=== PATIENT | male | born 1940 | race Caucasian/White ===

== ENCOUNTER 2016-07-16 14:16 | Inpatient (IN) | payer OTHER ==
[~2016-07-16] VITALS: Ht 172.7 cm; Wt 77.1 kg
--- NOTE | 2016-07-16 14:31 | NUR ---
PT PRESENTS TO ER C/O OF FEELING SOB. PT STATES LAST NIGHT HE COULD NOT SLEEP WELL. PT STATES HE FEELS TIRED AND SOB. PT HAS A HX OF COPD
--- NOTE | 2016-07-16 14:34 | ED DYSPNEA/ASTHMA COMPLAINT ---
History of Present Illness General Chief Complaint: Dyspnea (COPD, CHF, Other) Stated Complaint: SOB HX OF COPD Reconcile Medications Albuterol Sulfate (Proair Hfa) 90 MCG HFA.AER.AD 2 PUF INH Q4-6 PRN PRN COPD (Reported) Aspirin (Ecotrin*) 81 MG TABLET.DR 1 TAB PO DAILY CORONARY HEART DISEASE ( Reported) Atorvastatin Calcium 40 MG TABLET 1 TAB PO DAILY CHOLESTEROL (Reported) Fenofibrate (Tricor) 48 MG TABLET 1 TAB PO DAILY TRIGLYCERIDES (Reported) Folic Acid 1 MG TABLET 1 TAB PO DAILY FOLIC ACID (Reported) Lorazepam 2 MG TABLET 1 TAB PO Q12 PRN ANXIETY (Reported) Metoprolol Tartrate 25 MG TABLET 1 TAB PO BID CORONARY HEART DISEASE ( Reported) Tiotropium Tyler (Spiriva) 18 MCG CAP.W.DEV 1 CAP INH DAILY copd (Reported) Triage Note: PT PRESENTS TO ER C/O OF FEELING SOB. PT STATES LAST NIGHT HE COULD NOT SLEEP WELL. PT STATES HE FEELS TIRED AND SOB. PT HAS A HX OF COPD (RODRIGUEZ ESTRADA,[facility]) General Source: patient, family Exam Limitations: no limitations Vital Signs & Intake/Output Vital Signs & Intake/Output Vital Signs Date Time Temp Pulse Resp B/P Pulse O2 O2 Flow FiO2 Ox Delivery Rate 07/17 1254 95 Nasal 1.5L Cannula 07/17 0928 98.9 73 20 120/60 95 Nasal 3.0L Cannula 07/17 0911 99.3 78 24 126/74 07/17 0800 97 Nasal 3.0L Cannula 07/16 2241 92 Nasal 3.0L Cannula 07/16 2235 78 126/74 07/16 2045 99.3 98 24 126/74 94 Nasal 3.0L Cannula 07/16 1936 100.9 07/16 1926 100.9 90 22 141/63 95 Nasal 2.0L Cannula 07/16 1600 94 Nasal 2.0L Cannula 07/16 1557 93 Room Air 07/16 1556 98.0 90 22 117/63 98 Nasal 2.0L Cannula 07/16 1431 98.8 93 20 97/67 98 Room Air ED Intake and Output 07/17 0000 07/16 1200 Intake Total 1750 Output Total 300 Balance 1450 Intake, IV 1300 Intake, Oral 450 Number 0 Bowel Movements Output, Urine 300 Patient 170 lb Weight Allergies Coded Allergies: NO KNOWN ALLERGIES (07/16/16) Triage Nurses Notes Reviewed? yes HPI: This is a 75-year-old male presented to the emergency department with chief complaint of shortness of breath. According to the family, who is at bedside, reported that the patient has been having flulike symptoms since new year. He has been having cough, yellow- green colored sputum production, shortness of breath. Eduardo Zaldivar MD recommended antibiotics for 7days which he completed 3 days ago. He has been having worsening cough, shortness of breath, sputum production for 2 days. He feels his lungs were congested. According to his he was confused at this morning. Hallucinating and seeing some orange-colored spots. Reported being having chills since this morning. Associated with dizziness and lightheadedness. Denied any chest pain, racing of heart, headache, nausea, vomiting, abdominal pain. Off note family reported exposure to sick contacts. (ECTOR ESTRADA,TC) Onset: Gradual Duration: week(s): (1) Timing: recent history Severity: moderate Activities at Onset: none, status post course of antibiotics that finished last week Associated Symptoms: cough, fever, chills, rigors, dyspnea (JENNIFER GARCIA) ED Sepsis Exam Date of Focused Sepsis Exam: 07/16/16 Time of Focused Sepsis Exam: 1550 Sepsis Cardiac Exam: Regular Rate/Rhythm Sepsis Resp Exam: Ronchi Sepsis Cap Refill Exam: <2 Sec Sepsis Peripheral Pulse Exam: Weak Sepsis Peripheral Pulse Location: Radial Sepsis Skin Color Exam: Normal for Ethnicity Skin Temp/Moisture Exam: Warm/Dry (KARO FRIAS MD) Past History Travel History Traveled to [place] past 21 day No Medical History Neurological: NONE EENT: NONE Cardiovascular: angina, CAD, CHF, hypertension, hyperlipidemia, myocardial infarction Respiratory: COPD Gastrointestinal: NONE Hepatic: NONE Renal: NONE Musculoskeletal: chronic back pain Psychiatric: NONE Endocrine: NONE Pneumonia Vaccine: 03/30/08 Surgical History Surgical History: CABG Psychosocial History Who do you live with Spouse Services at Home None What is your primary language Serbian Tobacco Use: Quit >30 days ago (KARO FRIAS MD) Medical History Any Pertinent Medical History? see below for history Family History Hx Contributory? Yes (TC BARNEY MD) Review of Systems Review of Systems Skin: Denies: see HPI. Hematologic/Endocrine: Denies: bruising, bleeding, polyuria, polydipsia. Immunologic/Allergic: Denies: splenectomy. (KARO FRIAS MD) Review of Systems Constitutional: Reports: chills, weakness. Denies: diaphoresis, fever, malaise, unexplained weight loss. EENTM: Reports: hearing changes. Respiratory: Reports: cough, short of breath, sputum production. Denies: hemoptysis, orthopnea, stridor, wheezing. Cardiovascular: Denies: chest pain, edema, orthopena, palpitations, peripheral edema, syncope. GI: Denies: abdominal pain. Genitourinary: Denies: frequency. Musculoskeletal: Reports: joint pain. Neurological/Psychological: Reports: confusion. Denies: anxiety, dementia, emotional problems, headache, numbness, tremors, weakness. (TC BARNEY MD) Physical Exam Physical Exam General Appearance: alert, awake, mild distress Eyes: Bilateral: normal appearance, PERRL, EOMI. Ears, Nose, Throat: normal pharynx, normal ENT inspection, hearing grossly normal Peripheral Pulses: 2+ radial (R), 2+ radial (L) Neurologic/Psych: no motor/sensory deficits, awake, alert, oriented x 3 Skin: warm/dry (KARO FRIAS MD) Physical Exam General Appearance: well developed/nourished Head: atraumatic, normal appearance Neck: normal inspection Respiratory: chest non-tender, rales, respiratory distress Cardiovascular: regular rate/rhythm Gastrointestinal: normal bowel sounds, soft, non-tender Extremities: no edema (TC BARNEY MD) Core Measures ACS in differential dx? No Severe Sepsis Present: Yes BC x2: Yes Lactic Acid x2: Yes IV ABX Broad Spectrum: Yes NS/LR Started: Yes Septic Shock Present: No (JENNIFER GARCIA) Progress Diagnostic Imaging: Viewed by Me: Radiology Read. Discussed w/RAD: Radiology Read. CXR Impression: PATIENT: ESME SÁNCHEZ PRESENT AGE: 75 PATIENT ACCOUNT NO: [id number] : 40 LOCATION: [facility] ORDERING PHYSICIAN: KARO FRIAS MD SERVICE DATE: 07/16/16 EXAM TYPE: RAD - XRY -CHEST XRAY, PA AND LATERAL EXAMINATION: XR CHEST CLINICAL INFORMATION: Cough and shortness of breath. Colored sputum. COMPARISON: CXR from 04/30/[address] from 05/14/2016. TECHNIQUE: PA and lateral views of the chest were obtained. FINDINGS: The lungs are hyperexpanded and hyperlucent from extensive emphysematous disease. Compared to the chest CT of 05/14/2016, there is new patchy and interstitial opacity within the right lower lobe, likely representing a combination of bronchitis and pneumonia. No pneumothorax or pleural effusion. Cardiac silhouette is normal in size, status post coronary artery bypass graft surgery, with intact sternotomy wires in place. The descending thoracic aorta is tortuous. No acute skeletal findings. IMPRESSION: 1. Pulmonary emphysema. 2. Right lower lobe pneumonia. DICTATED BY: FABIAN QUINTEROS MD DATE/TIME DICTATED: 07/16/161533 DYE WINCH OPERATOR:YENNY DATE/TIME TRANSCRIBED:07/16/161533 CONFIDENTIAL, DO NOT COPY WITHOUT APPROPRIATE AUTHORIZATION. <Electronically signed in Other Vendor System> SIGNED BY: FABIAN QUINTEROS MD 07/16/16 8116 Initial ED EKG: ST depression (v3-v6) Prior EKG: changed Rhythm Strip: normal sinus rhythm (RODRIGUEZ ESTRADA,KARO) Differential Diagnosis: bronchitis, CHF, COPD, pneumonia Plan of Care: Orders Procedure Date/time Status CBC WITHOUT DIFFERENTIAL 07/18 0500 Active BASIC ELECTROLYTES PLUS BUN&CR 07/18 0500 Active Regular Diet 07/17 B Active RT: Evaluation 07/17 1252 Active Change service to 07/17 0740 Active MAGNESIUM 07/17 0600 Complete CBC WITHOUT DIFFERENTIAL 07/17 0600 Complete BASIC ELECTROLYTES PLUS BUN&CR 07/17 0600 Complete TROPONIN LEVEL 07/17 0000 Complete LACTIC ACID 07/17 0000 Complete EKG 07/17 0000 Active THERAPIST ORDERS 07/17 UNK Complete OXYGEN SETUP (GEN) 07/17 UNK Complete Discontinue Telemetry/Monitor 07/17 UNK Active Teach/Educate 07/16 2241 Active Nutritional Intake, Monitor 07/16 2241 Active Isolation 07/16 2241 Active Patient Care Conference 07/16 2241 Active Activity/Ambulation 07/16 2241 Active LACTIC ACID 07/16 2100 Complete Intake & Output 07/16 1856 Active LACTIC ACID 07/16 1808 Complete TROPONIN LEVEL 07/16 1800 Complete EKG 07/16 1800 Active Change service to 07/16 1754 Active Saline Lock 07/16 1751 Active Pathway - chart 07/16 1751 Active House Staff 07/16 1751 Active CULTURE,URINE 07/16 1751 Active STREP PNEUMO URINARY ANTIGEN 07/16 1751 Active LEGIONELLA URINARY ANTIGEN 07/16 1751 Active URINALYSIS 07/16 1751 Complete Patient Data 07/16 1624 Active Admit to inpatient 07/16 1616 Active Vital Signs 07/16 1616 Active Code Status 07/16 1616 Active RT ED ORDERS 07/16 1508 Active LOWER RESPIRATORY CULTURE 07/16 1508 Active BLOOD CULTURE 07/16 1508 Active TROPONIN LEVEL 07/16 1508 Complete PARTIAL THROMBOPLASTIN TIME 07/16 1508 Complete PROTHROMBIN TIME 07/16 1508 Complete LACTIC ACID 07/16 1508 Complete COMPREHENSIVE METABOLIC PANEL 07/16 1508 Complete CBC WITHOUT DIFFERENTIAL 07/16 1508 Complete RAPID VIRAL INFLUENZA A 07/16 1505 Complete EKG 07/16 1427 Active TRC EVALUATION (GEN) 07/16 UNK Complete Current Medications Sig/Shante Start time Last Medication Dose Stop Time Status Admin Atorvastatin Calcium 40 MG DAILY@1700 07/17 1700 AC (Lipitor) Vancomycin HCl 1,000 MG DAILY 07/17 1132 AC Dextrose/Water 250 ML (D5W) Lorazepam 0.5 MG TID PRN 07/17 1015 AC (Ativan) 07/24 1014 Lorazepam 2 MG Q12P PRN 07/16 1845 CAN (Ativan) Acetaminophen/ 1 TAB Q6P PRN 07/16 1800 AC Hydrocodone Bitart (Vicodin) Hydromorphone HCl 0.5 MG Q4P PRN 07/16 1800 AC (Dilaudid) Laboratory Tests 07/17/16 0640: Anion Gap 13, Estimated GFR 49 L, BUN/Creatinine Ratio 17.1, Magnesium 1.9, CBC w Diff NO MAN DIFF REQ, RBC 3.70 L, MCV 97.4 H, MCH 33.0 H, RDW 13.6, MPV 7.9 , Gran % 87.9 H, Lymphocytes % 5.3 L, Monocytes % 6.8, Eosinophils % 0, Basophils % 0 L, Absolute Granulocytes 11.7 H, Absolute Lymphocytes 0.7 L, Absolute Monocytes 0.9 H, Absolute Eosinophils 0, Absolute Basophils 0, PUBS MCHC 33.9 07/17/16 0022: Lactic Acid 1.6, Troponin I < 0.01 07/16/162118: Urine Color YEL, Urine Clarity CLEAR, Urine pH 6.0, Ur Specific [place] 1.020, Urine Protein NEG, Urine Ketones NEG, Urine Nitrite NEG, Urine Bilirubin NEG, Urine Urobilinogen 0.2, Ur Leukocyte Esterase NEG, Ur Microscopic EXAM NOT REQUIRED, Urine Hemoglobin NEG, Urine Glucose NEG 07/16/162114: Lactic Acid 2.5 H 07/16/16 183: Troponin I < 0.01 07/16/16 183: Lactic Acid 2.5 H 07/16/16 1540: Anion Gap 18 H, Estimated GFR 35 L, BUN/Creatinine Ratio 15.3, Glucose 92, Lactic Acid 2.6 H, Calcium 10.1, Total Bilirubin 1.2, AST 26, ALT 23, Alkaline Phosphatase 54, Troponin I < 0.01, Total Protein 7.7, Albumin 4.6, Globulin 3.1, Albumin/Globulin Ratio 1.5, PT 14.4 H, INR 1.38 H, APTT 32, CBC w Diff MAN DIFF ORDERED, RBC 4.52 L, MCV 97.8 H, MCH 32.9 H, RDW 14.2, MPV 7.2 L, Gran % 91.3 H, Lymphocytes % 2.8 L, Monocytes % 5.7, Eosinophils % 0, Basophils % 0.2, Absolute Granulocytes 14.1 H, Segmented Neutrophils 80 H, Band Neutrophils 8 H, Absolute Lymphocytes 0.4 L, Lymphocytes 5 L, Monocytes 7, Absolute Monocytes 0.9 H, Absolute Eosinophils 0, Absolute Basophils 0, Platelet Estimate ADEQUATE, Normocytic RBCs VERIFIED, Normochromic RBCs VERIFIED , PUBS MCHC 33.7 Microbiology 07/16 2317 LOWER RESP: Respiratory Culture - RES 07/16 2317 LOWER RESP: Gram Stain - RES 07/16 2118 URINE ROUT: Legionella Antigen - RES 07/16 2118 URINE ROUT: Streptococcus pneumoniae Antigen (M - RES 07/16 2118 URINE ROUT: Urine Culture - RES 07/16 1540 BLOOD: Blood Culture - RES 07/16 1438 BLOOD: Blood Culture - RES Initial ED EKG: normal axis, normal intervals, normal p-waves, normal QRS complex, normal sinus rhythm (ECTOR ESTRADA,[facility]) Comments: 07/16/2016 5:24:01 PM Patient was not seen by JOHNATHON Hinds (JENNIFER GARCIA) Departure Departure Time of Disposition: 1607 Disposition: STILL A PATIENT Condition: Stable Clinical Impression Primary Impression: Pneumonia Secondary Impressions: Acute electrocardiogram changes, Lactic acidosis Referrals: BRANDIE CHEUNG MD (PCP/Family) Departure Forms: Customer Survey General Discharge Information Admission Note Spoke With: ELIECER ESTRADA,STEVE Documentation of Exam: Documentation of any treatments & extenuating circumstances including Concerns Regarding Discharge (functional status, medication knowledge or non-compliance, living conditions, etc.) that warrant an admission rather than observation: [iv abx, iv fluids, nasal oxygen, trc/nebs, f/u blood and sputum cultures, serial ekg/troponin] Resident Co-Sign Statement Statement: ED Attending supervision documentation- [X] I saw and evaluated the patient. I have also reviewed all the pertinent lab results and diagnostic results. I agree with the findings and the plan of care as documented in the Resident's documentation. [X] I have reviewed the ED Record and agree with the Resident's documentation. [] Additions or exceptions (if any) to the Resident's note and plan are summarized below: [] (KARO FRIAS MD) Critical Care Note Critical Care Note Critical Care Time: non-applicable (KARO FRIAS MD) Critical Care Note Critical Care Time: non-applicable (JENNIFER GARCIA) ED Attending Observation Initial Observation Note: I have seen and personally examined ESME SÁNCHEZ SR on 07/17/16 at 1320. I agree with the current emergency department documentation. The disposition (admission or discharge) is uncertain at this time, he needs a period of observation for the following reason(s): The ED Nurse caring for this patient has been personally informed as to what the patient is being observed for. (KARO FRIAS MD) Initial Observation Note: I have seen and personally examined ESME SÁNCHEZ SR on 07/16/16 at 1514. I agree with the current emergency department documentation. The disposition (admission or discharge) is uncertain at this time, he needs a period of observation for the following reason(s): The ED Nurse caring for this patient has been personally informed as to what the patient is being observed for. [facility]
--- NOTE | 2016-07-16 14:45 | NUR ---
PT TO ROOM 2 FOR PROVIDER EVAL.
--- NOTE | 2016-07-16 15:39 | RADIOLOGY REPORT ---
EXAMINATION: XR CHEST CLINICAL INFORMATION: Cough and shortness of breath. Colored sputum. COMPARISON: CXR from 04/30/[address] from 05/14/2016. TECHNIQUE: PA and lateral views of the chest were obtained. FINDINGS: The lungs are hyperexpanded and hyperlucent from extensive emphysematous disease. Compared to the chest CT of 05/14/2016, there is new patchy and interstitial opacity within the right lower lobe, likely representing a combination of bronchitis and pneumonia. No pneumothorax or pleural effusion. Cardiac silhouette is normal in size, status post coronary artery bypass graft surgery, with intact sternotomy wires in place. The descending thoracic aorta is tortuous. No acute skeletal findings. IMPRESSION: 1. Pulmonary emphysema. 2. Right lower lobe pneumonia.
--- NOTE | 2016-07-16 15:42 | NUR ---
TRIAGE NOTE ACKNOWLEDGED AND RN CARE ASSUMED PT EVALUATED BY DR FRIAS RESP THERAPIST CALLED TO TRANSFER PT
[2016-07-16 15:48] LABS: ABSOLUTE BASOPHIL COUNT 0 /CUMM (0.0-0.2); ABSOLUTE EOSINOPHIL COUNT 0 /CUMM (0.0-0.7); ABSOLUTE GRANULOCYTE CT 14.1 /CUMM (1.4-6.5); ABSOLUTE LYMPH COUNT 0.4 /CUMM (1.2-3.4); ABSOLUTE MONOCYTE COUNT 0.9 /CUMM (0.10-0.60); BASOPHIL % 0.2 % (0.0-2.0); EOSINOPHIL % 0 % (0-5); HEMATOCRIT 44.2 % (42-52); MEAN CORPUSCULAR HGB 32.9 PG (27.0-31.0); MEAN CORPUSCULAR HGB CONC 33.7 G/DL (33.0-37.0); MEAN CORPUSCULAR VOLUME 97.8 FL (80.0-94.0); MEAN PLATELET VOLUME 7.2 FL (7.4-10.4); PLATELET COUNT 231 /CUMM (130-400); RBC DISTRIBUTION WIDTH 14.2 % (11.5-14.5); RED BLOOD CELL CT 4.52 /CUMM (4.70-6.10); WHITE BLOOD CELL COUNT 15.4 /CUMM (4.8-10.8)
[2016-07-16 15:52] LABS: GRANULOCYTE % 91.3 % (42.2-75.2)
--- NOTE | 2016-07-16 15:52 | NUR ---
2ND SET OF BLOOD CULTURES OBTAINED. 20 G MEDLCOK PLACED IN LEFT FOREARM IV OF N/S STARTED AT 500 ML/HR X 2.
[2016-07-16 15:59] LABS: PT 14.4 SEC (9.4-12.5); PTT 32 SEC (25-37)
--- NOTE | 2016-07-16 16:02 | NUR ---
RESP THERAPIST IN TO ADMINISTER DUO MED NEB TX
--- NOTE | 2016-07-16 16:05 | NUR ---
CRITICAL TEST RESULTS [id number] ESME SÁNCHEZ SR 75 M TESTS AND RESULTS: LACTIC 2.6 Results received and read back by: LINDSEY AYERS Results received date and time: 07/16/16 1605 The following provider was notified of the results, and read the results back: DR FRIAS Notified date and time: 07/16/16 at 1605
--- NOTE | 2016-07-16 17:18 | History & Physical ---
General Information and HPI Allergies/Medications Allergies: Coded Allergies: NO KNOWN ALLERGIES (07/16/16) Past History Travel History Traveled to [place] past 21 day No Medical History Neurological: NONE EENT: NONE Cardiovascular: angina, CAD, CHF, hypertension, hyperlipidemia, myocardial infarction Respiratory: COPD Gastrointestinal: NONE Hepatic: NONE Renal: NONE Musculoskeletal: chronic back pain Psychiatric: NONE Endocrine: NONE Pneumonia Vaccine: 03/30/08 Surgical History Surgical History: CABG Past Family/Social History Psychosocial History Services at Home: None Core Measures/Miscellaneous Severe Sepsis Severe Sepsis Present: Yes BC x2: Yes Lactic Acid x2: Yes IV ABX Broad Spectrum: Yes NS/LR Started: Yes Septic Shock Septic Shock Present: No
--- NOTE | 2016-07-16 17:32 | History & Physical ---
See Addendum KACIE ESTRADA,CHAKA 07/16/16 1731: General Information and HPI Source of Information: patient, old records Exam Limitations: clinical condition History of Present Illness: Patient is a 75-year-old male with significant past medical history of coronary artery disease, status post CABG,hypertension, hyperlipidemia, chronic back pain , abdominal aortic aneurysm , COPD, presented with chief complaints of rapidly progressive shortness of breath, unable to sleep overnight, tiredness, and cough with yellowish-green expectoration. Since morning he started having confusion, chills, dizziness, hallucinations, and lightheadedness, so his brought him to the [facility]. Patient is hard of hearing, so most of the history is taken from the family and the . According to the patient was having flulike symptoms since last 15 days, for which he visited receiver, Dr. Zaldivar who prescribed him a course of antibiotics-cefuroxime for 7 days, which he completed around 3 days ago. Even after that he continues to have shortness of breath, cough with little sputum, sometimes yellowish-green in color. According to the , his cousins had flu and was in contact with the patient. He had his flu shot in May. He also had his pneumococcal vaccine in 2015. Patient also claims that he said he started having palpitation. He denies of any fever, sinusitis, chest pain, abdominal pain, dysuria, constipation, diarrhea. Personal history-he quit the smoking in 2004 Past medical history-right lower lobe pneumonia 2011. Lower respiratory tract culture were showing yeast. Allergies/Medications Allergies: Coded Allergies: NO KNOWN ALLERGIES (07/16/16) Past History Travel History Traveled to [place] past 21 day No Medical History Neurological: NONE EENT: NONE Cardiovascular: angina, CAD, CHF, hypertension, hyperlipidemia, myocardial infarction Respiratory: COPD Gastrointestinal: NONE Hepatic: NONE Renal: NONE Musculoskeletal: chronic back pain Psychiatric: NONE Endocrine: NONE Pneumonia Vaccine: 03/30/08 Surgical History Surgical History: CABG Past Family/Social History Psychosocial History Services at Home: None Review of Systems Review of Systems Constitutional: Reports: weakness. Cardiovascular: Reports: palpitations. Denies: chest pain, edema, peripheral edema, syncope. Respiratory: Reports: cough, short of breath, sputum production, wheezing. GI: Denies: abdominal pain, bloating, constipation, diarrhea, distention, nausea, vomiting. Genitourinary: Denies: discharge, dysuria, frequency, hematuria, hesitation, nocturia. Musculoskeletal: Reports: back pain, joint pain. Denies: gout, joint swelling, muscle pain, muscle stiffness. Skin: Denies: no symptoms. Exam & Diagnostic Data Last 24 Hrs of Vital Signs/I&O Vital Signs Date Time Temp Pulse Resp B/P Pulse O2 O2 Flow FiO2 Ox Delivery Rate 07/16 1936 100.9 07/16 1926 100.9 90 22 141/63 95 Nasal 2.0L Cannula 07/16 1600 94 Nasal 2.0L Cannula 07/16 1557 93 Room Air 07/16 1556 98.0 90 22 117/63 98 Nasal 2.0L Cannula 07/16 1431 98.8 93 20 97/67 98 Room Air Intake & Output 07/16 1600 07/16 0800 07/16 0000 Intake Total Output Total Balance Patient 74.843 kg Weight Physical Exam General Appearance Alert, Oriented X3, Cooperative, No Acute Distress Skin No Rashes, No Breakdown, No Significant Lesion HEENT Atraumatic, PERRLA, EOMI Neck Supple, No JVD Cardiovascular Regular Rate, Normal S1, Normal S2 Lungs scattered wheezing, rhonchi Abdomen Soft, No Tenderness Neurological Normal Speech, intentional tremors Extremities No Clubbing, No Cyanosis, No Edema, Normal Pulses, intentional tremors Vascular Normal Pulses, Pulses Symmetrical Assessment/Plan Assessment: Patient is a 75-year-old male with significant past medical history of coronary artery disease, status post CABG,hypertension, hyperlipidemia, chronic back pain , abdominal aortic aneurysm , COPD, presented with chief complaints of rapidly progressive shortness of breath, unable to sleep overnight, tiredness, and cough with yellowish-green expectoration. Since morning he started having confusion, chills, dizziness, hallucinations, and lightheadedness, so his brought him to the [facility]. Vital signs at the time of admission - temperature 98.8, pulse 93, respiratory rate 20, blood pressure 97/67, SPO2 98% on room air Pertinent labs - WBC 15.4, INR 1.38, creatinine 1.9, lactic acid 2.6 Chest [id number] emphysematous changes, chronic bronchitis/pneumonia of right lower lobe Problem list - Right lower lobe pneumonia resistant COPD acute exacerbation secondary to pneumonia Lactic acidosis Altered mental status secondary to CO2 narcosis Coronary artery disease status post CABG Chronic kidney disease Assessment and plan - As the patient isn't having history of chronic smoking and chronic COPD with recurrent episodes of pneumonia, especially in the right lower lobe, which is confirmed with a chest x-ray. He recently had a CT scan which did not shows any pulmonary nodules or signs of lung cancers. We still consider patient is having pneumonia which probably secondary to atelectasis/fibrosis/bronchiectasis/ obstructive. As a history of smoking and the COPD the patient has increased risk for lung cancer, he is also losing his weight and on examination he is having temporal muscle requesting it can be a part of chronic COPD. Right lower lobe pneumonia-resistant Patient failed outpatient 7 days course of cefuroxime We'll give IV fluids NS -75 mL per hour Advised to start on IV ceftriaxone and azithromycin As suggested by Dr. Zaldivar will start him on IV vancomycin We will follow sputum culture We will follow the blood cultures We'll keep patient on low-flow oxygen at the target of SPO2 more than 92% We will follow serial troponins/EKG to rule out demand ischemia COPD acute exacerbation secondary to pneumonia We will support the patient with antibiotics We'll also add prednisone 40 milligrams OD We'll start patient on albuterol/ipratropium nebulization TRC Sepsis/Lactic acidosis - WBC 15.4, INR 1.38, creatinine 1.9, lactic acid 2.6 We will trend the lactic acid every 4 hourly We will continue IV fluid NS 75cc/ hour Strict intake output charting Vital signs every 4 hourly Coronary artery disease status post CABG/hypertension/hyperlipidemia - We'll continue home medication including metoprolol/aspirin/atorvastatin/ fenofibrate Was discussed about the metoprolol tomorrow because it make more prone to bronchospasm. DVT prophylaxis-ALP S/apparent Diet-heart healthy diet CODE STATUS-full code As Ranked By This Provider Problem List: 1. Lactic acidosis 2. Pneumonia 3. History of - coronary artery bypass grafting 4. Dyslipidemia 5. COPD Core Measures/Miscellaneous Acute Coronary Syndrome ACS Diagnosis: No Cerebrovascular Accident CVA/TIA Diagnosis: No Congestive Heart Failure CHF Diagnosis: No Venous Thromboembolism VTE Risk Factors: Age > 40 VTE Prophylaxis Ordered Inpt: Mechanical (ALPS/TEDS) No Mech VTE prophylaxis d/t: No contraindications No VTE Pharm Prophylaxis d/t: No contraindications VTE Diagnosis: No VTE Type: NONE VTE Confirmed by (Test): NONE Severe Sepsis Severe Sepsis Present: Yes BC x2: Yes Lactic Acid x2: Yes IV ABX Broad Spectrum: Yes NS/LR Started: Yes Septic Shock Septic Shock Present: No Miscellaneous Documentation Attending Case Discussed With: ERNIE FITZPATRICK MD Primary Care Physician: JONATAN ESTRADA,BRANDIE 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 Level of Patient Care: Telemetry KATIE ESTRADA,[facility] 07/16/16 0416: General Information and HPI Allergies/Medications Home Med list Albuterol Sulfate (Proair Hfa) 90 MCG HFA.AER.AD 2 PUF INH Q4-6 PRN PRN COPD (Reported) Aspirin (Ecotrin*) 81 MG TABLET.DR 1 TAB PO DAILY CORONARY HEART DISEASE ( Reported) Atorvastatin Calcium 40 MG TABLET 1 TAB PO DAILY CHOLESTEROL (Reported) Fenofibrate (Tricor) 48 MG TABLET 1 TAB PO DAILY TRIGLYCERIDES (Reported) Folic Acid 1 MG TABLET 1 TAB PO DAILY FOLIC ACID (Reported) Lorazepam 2 MG TABLET 1 TAB PO Q12 PRN ANXIETY (Reported) Metoprolol Tartrate 25 MG TABLET 1 TAB PO BID CORONARY HEART DISEASE ( Reported) Tiotropium [place] (Spiriva) 18 MCG CAP.W.DEV 1 CAP INH DAILY copd (Reported) Resident Review Statement Resident Statement: examined this patient, discussed with applications intern, agreed with applications intern, discussed with family, reviewed EMR data (avail), discussed with nursing , discussed with case mgmt, reviewed images, amended to note Other Findings: Aaron is 85-year-old man with a medical history of known coronary artery disease status post inferior wall myocardial infarction 1993 management medically after a cardiac catheterization, unstable angina in 1994 status post CABG 3 with left internal mammary artery graft to his left anterior descending artery and saphenous vein graft to his first and second marginal branches, abdominal aortic aneurysm status post endovascular arterial repair, hypertension dyslipidemia COPD, history of pulmonary nodules,? Granulomatous disease, diverticular disease status post hemicolectomy sciatica severe degenerative joint disease BPH nephrolithiasis, long hx of tobacco use. She was hospitalized in November 2011 for right lower lobe pneumonia with suspected lung abscess. Now he presents to the emergency department complaining of several days of dyspnea flulike symptoms, positive sick contact with the flu, productive cough with purulent sputum. Patient failed outpatient treatment with cefuroxime. This morning, the family noticed a change in mental status (confusion and hallucinations) he also endorses dizziness lightheadedness, ? weight loss. On further review the patient denies any chest pain palpitations headache nausea vomiting abdominal pain or any other symptoms after review in detail. This patient has had right lower lobe pneumonia before, chest x-ray demonstrates a right lower lobe infiltrate. The recurrence of this pneumonia is concerning especially given interval weight loss and long-standing history of tobacco use ( ?Post obstructive PNA). He appears septic. He may have an underlying malignancy. Additionally, he was also exposed to a sick contact who was flu +. The only EKG changes are T-wave depression in javon-lateral leads. - Problems - Community Acquired Pneumonia AMS AG metabolic acidosis CAD COPD CKD - Plan - Serial enzymes and EKG Ceftriaxone 1g iv q24 Azithromycin 500mg iv q24 Await blood, urine, sputum cx, rapid flu Consider oseltamivir pending above Check urinalysis Continue inhalers Albuterol/Tiotropium nebs prn Hold lorazepam for confusion/AMS Await pulmonary consultation NS @100cc/hr Repeeat lactic acid Continue statin, tricor, aspirin DVT ppx - heparin FULL code
--- NOTE | 2016-07-16 18:00 | PN- Att Addend ---
Attending Addendum Attending Brief Note Patient seen and examined in ED. Plan of care discussed with the medical team and the patient. Available lab work and radiology test reports were reviewed. Patient is 75-year-old male with past history of coronary heart disease status post CABG and prior history of pneumonia last admitted here 2011. Patient presents with increased shortness of breath. He recently was treated with cefuroxime by Dr. Zaldivar for respiratory symptoms. Despite this treatment for 7 days patient's symptoms have not improved. He currently does not take oxygen at home. Family reports that patient has been generally weak, had chills this morning. He has been slightly nauseous and his by mouth intake for food has been lower than expected. His fluid intake has been stable however. Patient does not report any recent fever or chest pain or any abdominal pain or diarrhea. Patient was evaluated today in emergency room and chest x-ray shows right lower lobe pneumonia for which he is being admitted for IV antibiotic treatment since patient has failed outpatient course. Vital Signs Date Time Temp Pulse Resp B/P Pulse O2 O2 Flow FiO2 Ox Delivery Rate 07/16 1600 94 Nasal 2.0L Cannula 07/16 1556 98.0 90 22 117/63 98 Nasal 2.0L Cannula 07/16 1431 98.8 93 20 97/67 98 Room Air Intake & Output 07/16 1600 07/16 0800 07/16 0000 Intake Total Output Total Balance Patient 165 lb Weight Exam: General: Patient awake slightly lethargic and oriented without any distress CVS: S1 plus S2 without any murmur or gallops Chest: Few scattered crepitation without any wheeze. Overall decreased air entry at the bases. There is no respiratory distress. Abdomen: Soft nontender, bowel sound present, no guarding or rebound BIOLOGY INSTRUCTOR: Awake alert oriented without any focal neuro deficit and follows command appropriately Extremities: No edema; no clubbing or cyanosis noted Laboratory Tests 07/16 1540 Chemistry Sodium (137 - 145 mmol/L) 144 Potassium (3.5 - 5.1 mmol/L) 4.1 Chloride (98 - 107 mmol/L) 105 Carbon Dioxide (22 - 30 mmol/L) 21 L Anion Gap (5 - 16) 18 H BUN (9 - 20 mg/dL) 29 H Creatinine (0.7 - 1.2 mg/dL) 1.9 H Estimated GFR (>60 ml/min) 35 L BUN/Creatinine Ratio (7 - 25 %) 15.3 Glucose (65 - 99 mg/dL) 92 Lactic Acid (0.7 - 2.1 mmol/L) 2.6 H Calcium (8.4 - 10.2 mg/dL) 10.1 Total Bilirubin (0.2 - 1.3 mg/dL) 1.2 AST (17 - 59 U/L) 26 ALT (21 - 72 U/L) 23 Alkaline Phosphatase (< 127 U/L) 54 Troponin I (<0.11 ng/ml) < 0.01 Total Protein (6.3 - 8.2 g/dL) 7.7 Albumin (3.5 - 5.0 g/dL) 4.6 Globulin (1.9 - 4.2 gm/dL) 3.1 Albumin/Globulin Ratio (1.1 - 2.2 %) 1.5 Coagulation PT (9.4 - 12.5 SEC) 14.4 H INR (0.90 - 1.17) 1.38 H APTT (25 - 37 SEC) 32 Hematology CBC w Diff MAN DIFF ORDERED WBC (4.8 - 10.8 /CUMM) 15.4 H RBC (4.70 - 6.10 /CUMM) 4.52 L Hgb (14.0 - 18.0 G/DL) 14.9 Hct (42 - 52 %) 44.2 MCV (80.0 - 94.0 FL) 97.8 H MCH (27.0 - 31.0 PG) 32.9 H RDW (11.5 - 14.5 %) 14.2 Plt Count (130 - 400 /CUMM) 231 MPV (7.4 - 10.4 FL) 7.2 L Gran % (42.2 - 75.2 %) 91.3 H Lymphocytes % (20.5 - 51.1 %) 2.8 L Monocytes % (1.7 - 9.3 %) 5.7 Eosinophils % (0 - 5 %) 0 Basophils % (0.0 - 2.0 %) 0.2 Absolute Granulocytes (1.4 - 6.5 /CUMM) 14.1 H Segmented Neutrophils (42.2 - 75.2 %) 80 H Band Neutrophils (0.0 - 5.0 %) 8 H Absolute Lymphocytes (1.2 - 3.4 /CUMM) 0.4 L Lymphocytes (20.5 - 51.1 %) 5 L Monocytes (1.7 - 9.3 %) 7 Absolute Monocytes (0.10 - 0.60 /CUMM) 0.9 H Absolute Eosinophils (0.0 - 0.7 /CUMM) 0 Absolute Basophils (0.0 - 0.2 /CUMM) 0 Platelet Estimate (ADEQUATE) ADEQUATE Normocytic RBCs VERIFIED Normochromic RBCs VERIFIED PUBS MCHC (33.0 - 37.0 G/DL) 33.7 Microbiology Date/Time Procedure - Status Source Growth 07/16 1540 Blood Culture - RECD BLOOD 07/16 1508 Respiratory Culture - ORD LOWER RESP 07/16 1508 Gram Stain - ORD LOWER RESP 07/16 1438 Blood Culture - RECD BLOOD Chest x-ray 1. Pulmonary emphysema. 2. Right lower lobe pneumonia. EKG- EKG was compared to last EKG in 2014. Current EKG shows flattening of T waves in multiple leads and slight ST depression. Assessment problem list * Right lower lobe pneumonia * EKG changes suggestive of ischemia, rule out TX * History of COPD * History of CAD status post CABG * History of CHF * History of TX * History of hypertension * History of hyperlipidemia * Chronic back pain history * Chronic renal failure-creatinine currently stable * Hypertension and suspected sepsis- patient is status post fluid resuscitation Plan * Obtain sputum culture and Gram stain * Blood cultures * Start patient on IV ceftriaxone and azithromycin; if patient does not improve can consider coverage for MRSA and Pseudomonas * Consult Dr. Zaldivar * Continue oxygen and taper as tolerated * Admit to telemetry * Check troponin 3 * Cardiac consult Dr. Cohen * Continue home medications * TRC and nebs * Follow-up Repeat lactic acid level
--- NOTE | 2016-07-16 18:01 | Admission Certification ---
Admission Certification Certification Statement - As attending physician, I certify that at the time of - admission, based on clinical presentation, severity of - symptoms, need for further diagnostic testing and - therapeutic interventions, and risk of adverse outcomes - without in-hospital treatment, in my clinical assessment, - this patient requires an acute hospital stay for a minimum - of two nights or longer. I have also considered psychsocial - factors such as support system, advanced age, financial - issues, cognitive issues, and failed out-patient treatments, - past re-admission history, safety of patient, and lack of - compliance as applicable. Specific rationale supporting this admission is: Pneumonia and EKG changes
--- NOTE | 2016-07-16 18:03 | NUR ---
PT IS GOING TO ROOM 204-2
--- NOTE | 2016-07-16 18:23 | Cons- Pulmonary ---
General Information and HPI Consulting Request Date of Consult: 07/16/16 Requested By: er History of Present Illness: Patient is 75-year-old male with past history of coronary heart disease status post CABG and prior history of pneumonia last admitted here 2011. Patient presents with increased shortness of breath. He recently was treated with cefuroxime by me for respiratory symptoms. Despite this treatment for 7 days patient's symptoms have not improved. He currently does not take oxygen at home. No hemoptysis, occ sputum, No body aches Family reports that patient has been generally weak, had chills this morning. He has been slightly nauseous and his by mouth intake for food has been lower than expected. His fluid intake has been stable however. Patient does not report any recent fever or chest pain or any abdominal pain or diarrhea. Patient was evaluated today in emergency room and chest x-ray shows right lower lobe pneumonia for which he is being admitted for IV antibiotic treatment since patient has failed outpatient course. Lately has been loosing wt Allergies/Medications Allergies: Coded Allergies: NO KNOWN ALLERGIES (07/16/16) Review of Systems Review of Systems Constitutional: Reports: see HPI. Past History Travel History Traveled to [place] past 21 day No Medical History Neurological: NONE EENT: NONE Cardiovascular: angina, CAD, CHF, hypertension, hyperlipidemia, myocardial infarction Respiratory: COPD Gastrointestinal: NONE Hepatic: NONE Renal: NONE Musculoskeletal: chronic back pain Psychiatric: NONE Endocrine: NONE Surgical History Surgical History: CABG Psychosocial History Services at Home: None Exam & Diagnostic Data Last 24 Hrs of Vital Signs/I&O Vital Signs Date Time Temp Pulse Resp B/P Pulse O2 O2 Flow FiO2 Ox Delivery Rate 07/16 1600 94 Nasal 2.0L Cannula 07/16 1556 98.0 90 22 117/63 98 Nasal 2.0L Cannula 07/16 1431 98.8 93 20 97/67 98 Room Air Intake & Output 07/16 1600 07/16 0800 07/16 0000 Intake Total Output Total Balance Patient 165 lb Weight Last 48 Hrs of Labs/Ramakrishna: Laboratory Tests 07/16/16 1540: Anion Gap 18 H, Estimated GFR 35 L, BUN/Creatinine Ratio 15.3, Glucose 92, Lactic Acid 2.6 H, Calcium 10.1, Total Bilirubin 1.2, AST 26, ALT 23, Alkaline Phosphatase 54, Troponin I < 0.01, Total Protein 7.7, Albumin 4.6, Globulin 3.1, Albumin/Globulin Ratio 1.5, PT 14.4 H, INR 1.38 H, APTT 32, CBC w Diff MAN DIFF ORDERED, RBC 4.52 L, MCV 97.8 H, MCH 32.9 H, RDW 14.2, MPV 7.2 L, Gran % 91.3 H, Lymphocytes % 2.8 L, Monocytes % 5.7, Eosinophils % 0, Basophils % 0.2, Absolute Granulocytes 14.1 H, Segmented Neutrophils 80 H, Band Neutrophils 8 H, Absolute Lymphocytes 0.4 L, Lymphocytes 5 L, Monocytes 7, Absolute Monocytes 0.9 H, Absolute Eosinophils 0, Absolute Basophils 0, Platelet Estimate ADEQUATE, Normocytic RBCs VERIFIED, Normochromic RBCs VERIFIED , PUBS MCHC 33.7 Assessment/Plan Impression/Plan: Exam: General: Patient awake slightly lethargic and oriented without any distress CVS: S1 plus S2 without any murmur or gallops Chest: Few scattered crepitation without any wheeze. Overall decreased air entry at the bases. There is no respiratory distress. Has crackles in the right base Abdomen: Soft nontender, bowel sound present, no guarding or rebound WINDER TENDER: Awake alert oriented without any focal neuro deficit and follows command appropriately Extremities: No edema; no clubbing or cyanosis noted SIGNIFICANT DATA chest x-ray showed significant emphysema with right lower lobe pneumonia Chest CT scan done in 05/14/2016 showed advanced emphysema, prior granulomatous disease, stable right lower lobe and inferior lingular parenchymal scarring no pulmonary nodule. Previous chest x-ray had showed similar findings. Cultures unremarkable so far influenza negative Creatinine conically elevated at 1.9 initial lactic acid was slightly elevated anion gap was 18 white count 15.4 with 91% granulocytes 8% bands INR was stable previous ABG had shown hypercarbia echocardiogram done in 2010 showed show normal ejection fraction IMPRESSION This is a gentleman with end-stage COPD with advanced emphysema, previous granulomatous lung disease, previous parenchymal scarring, coronary artery disease with previous CABG, previous abd aortic aneurysm status post repair, previous inferior wall [place], dyslipidemia, peripheral vascular disease, osteoarthritis, diverticular disease in the past with hemicolectomy, BPH, degenerative disc disease with previous low back surgery and cervical disease surgery, previous nephrolithiasis, chronic kidney disease stage 3, recent worsening memory loss with weight loss now has * Community-acquired pneumonia in a gentleman who has significant COPD who did not respond to by mouth cefuroxime. Hence bacteria such as staph aureus and pseudomonas may need to be ruled out (but this seems less likely). * Significant bandemia, mild elevated lactic acid, increase anion gap suggestive of early sepsis * Peripheral vascular disease, ischemic heart disease with no clinical evidence suggestive of activity ischemia. His troponin is within normal limits. 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 * Significant COPD with no evidence of severe active wheezing however patient does seem to have severe pneumonia hence would require steroid therapy RECOMMENDATION * One dose of vancomycin * Continue ceftriaxone and azithromycin * Sputum culture * If he does not improve we will switch his ceftriaxone to ceftazidime to treat Pseudomonas however no evidence suggestive of Pseudomonas clinically so far * Prednisone 40 mg daily * Nebulizer therapy only as needed use ipratropium avoid albuterol * Order a Legionella and urinary pneumococcal antigen * Obtain outpatient medication list Discussed with family Consult Acknowledgment - Thank you for your consult request.
[2016-07-16] MEDS ORDERED: TRICOR48 M1 PO (18:36)
[2016-07-16] MEDS ORDERED: SPIRIVA18 MCG INH (18:36)
[2016-07-16] MEDS ORDERED: PROAIR HFA8.5 GM INH (18:37)
[2016-07-16] MEDS ORDERED: LORAZEPAM2 M1 PO (18:40)
[2016-07-16] MEDS ORDERED: ATORVASTATIN CA40 M1 PO (18:40)
[2016-07-16] MEDS ORDERED: FOLIC ACID1 M1 PO (18:41)
[2016-07-16] MEDS ORDERED: METOPROLOL TART25 M1 PO (18:41)
[2016-07-16] MEDS ORDERED: ASPIRIN EC81 M1 PO (18:42)
--- NOTE | 2016-07-16 18:42 | NUR ---
PT PROVIDED DINNER TRAY. FAMILY REMAINS AT BEDSIDE. CLINICAL STATUS UNCHANGED.
--- NOTE | 2016-07-16 18:45 | NUR ---
PT IS GOING TO 174-1
--- NOTE | 2016-07-16 19:36 | NUR ---
TEMP 100.9. PT MEDICATED WITH 650 MG TYLENOL PO FOR FEVER AND MILD LOWER BACK PAIN
[2016-07-16 20:45] VITALS: BP 126/74
--- NOTE | 2016-07-17 07:19 | PN- Housestaff ---
KACIE ESTRADA,CHAKA 07/17/16 0718: Subjective Follow-up For: Right lower lobe pneumonia COPD acute exacerbation Sepsis Complaints: no complaints Subjective: patient is seen and examined at the bedside. He is not having any active complaints. He denies cough, chest pain, fever, abdominal pain, dysuria, diarrhea, constipation. Review of Systems Constitutional: Reports: no symptoms. Objective Last 24 Hrs of Vital Signs/I&O Vital Signs Date Time Temp Pulse Resp B/P Pulse O2 O2 Flow FiO2 Ox Delivery Rate 07/17 0928 98.9 73 20 120/60 95 Nasal 3.0L Cannula 07/17 0911 99.3 78 24 126/74 07/16 2241 92 Nasal 3.0L Cannula 07/16 2235 78 126/74 07/16 2045 99.3 98 24 12674 94 Nasal 3.0L Cannula 07/16 1936 100.9 07/16 1926 100.9 90 22 141/63 95 Nasal 2.0L Cannula 07/16 1600 94 Nasal 2.0L Cannula 07/16 1557 93 Room Air 07/16 1556 98.0 90 22 117/63 98 Nasal 2.0L Cannula 07/16 1431 98.8 93 20 97/67 98 Room Air Intake & Output 07/17 1600 07/17 0800 07/17 0000 Intake Total 1150 1750 Output Total 700 300 Balance 450 1450 Intake, IV 800 1300 Intake, Oral 350 450 Number 0 0 Bowel Movements Output, Urine 700 300 Patient 77.111 kg Weight Physical Exam General Appearance: Alert, Oriented X3, Cooperative, No Acute Distress Skin: No Rashes, No Breakdown HEENT: Atraumatic, PERRLA, EOMI Neck: Supple, No JVD Cardiovascular: Regular Rate, Normal S1, Normal S2 Lungs: decreased air movement, basilar crackles, more on right, no wheezing Abdomen: Soft, No Tenderness Neurological: Normal Speech, intentional tremors Extremities: No Clubbing, No Cyanosis, No Edema Vascular: Normal Pulses, Pulses Symmetrical Assessment/Plan Assessment: Patient is a 75-year-old male with significant past medical history of coronary artery disease, status post CABG,hypertension, hyperlipidemia, chronic back pain , abdominal aortic aneurysm , COPD, presented with chief complaints of rapidly progressive shortness of breath, unable to sleep overnight, tiredness, and cough with yellowish-green expectoration. Since morning he started having confusion, chills, dizziness, hallucinations, and lightheadedness, so his brought him to the [facility]. 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 Intake output -1750/1450 Pertinent labs - The sputum is growing gram-positive cocci, rare budding yeast Sitting is negative for strep pneumo and Legionella antigen Influenza, A/P is negative Troponin -all negative <.01 Lactic acid -2.6,2.5, 2.5, 1.6 Creatinine - 1.9, 1.4 WBC - 15.4,13.3 Plan - We will continue ceftriaxone/azithromycin (Day 2) for right lower lobe pneumonia We will follow Dr. Zladivar's recommendation We will continue vancomycin until we get the sputum culture We'll continue prednisone 40 mgs per day TRC/nebulization We will avoid albuterol for nebulization Oxygen with a target of SPO2 more than 92% Aspiration precaution We'll continue atorvastatin/fenofibrate/aspirin Discussed with Dr. Castano, * advised to restart patient on tab lorazepam at low doses -0.5 mgs TID. * As the patient's 3 consequitive troponins are negative and EKG is not showing any new changes. We are discontinuing telemetry monitoring. Cardiology consult is already placed and follow Dr. Cohen's recommendation. CODE STATUS- full code DVT prophylaxis-ALPS/Heparin Diet- heart healthy diet Problem List: 1. Lactic acidosis 2. Osteoarthritis 3. Essential hypertension 4. Dyslipidemia 5. BPH 6. End stage COPD 7. Sepsis 8. Community acquired pneumonia Pain Ratin Pain Location: Joints, chest Pain Goal: Remain pain free Pain Plan: [id number] Tomorrow's Labs & Rationales: CBC, BEP because of sepsis and GIDEON OCTAVIO ESTRADA,DULCE 07/17/16 1011: Attending MD Review Statement Attending Statement Attending MD Statement: examined this patient, discuss w/resident/PA/LARGE ANIMAL HUSBANDRY TECHNICIAN, agreed w/resident/PA/LARGE ANIMAL HUSBANDRY TECHNICIAN, reviewed EMR data (avail), discussed with nursing, discussed with case mgmt Attending Assessment/Plan: 75-year-old male underlying COPD and emphysema, CAD status post CABG and CKD. He is here with a right lower lobe pneumonia. He had by mouth antibiotics cefuroxime prescribed by Dr. Zaldivar but failed by mouth antibiotics came in with a white count of 15,000, fever 100.9, mild lactic acidosis and tachycardia. He is feeling much better today. Plan to stop the IV fluids ,lactic acidosis is essentially resolved the creatinine has also come down. We are treating him with ceftriaxone and azithromycin will follow him closely to see for clinical improvement. He is getting by mouth steroids for his COPD and will have to clarify the home medications that are on hold. Because of the nonspecific EKG changes easy on telemetry and I asked Dr. Cohen to see him to clarify the need for the monitor.
[2016-07-17 08:52] LABS: ABSOLUTE BASOPHIL COUNT 0 /CUMM (0.0-0.2); ABSOLUTE EOSINOPHIL COUNT 0 /CUMM (0.0-0.7); ABSOLUTE GRANULOCYTE CT 11.7 /CUMM (1.4-6.5); ABSOLUTE LYMPH COUNT 0.7 /CUMM (1.2-3.4); ABSOLUTE MONOCYTE COUNT 0.9 /CUMM (0.10-0.60); BASOPHIL % 0 % (0.0-2.0); EOSINOPHIL % 0 % (0-5); MEAN CORPUSCULAR HGB CONC 33.9 G/DL (33.0-37.0); MEAN CORPUSCULAR VOLUME 97.4 FL (80.0-94.0); MEAN PLATELET VOLUME 7.9 FL (7.4-10.4); PLATELET COUNT 206 /CUMM (130-400); RBC DISTRIBUTION WIDTH 13.6 % (11.5-14.5); WHITE BLOOD CELL COUNT 13.3 /CUMM (4.8-10.8)
[2016-07-17 08:58] LABS: HEMATOCRIT 36.1 % (42-52)
[2016-07-17 09:20] LABS: GRANULOCYTE % 87.9 % (42.2-75.2)
[2016-07-17 09:28] VITALS: BP 120/60
--- NOTE | 2016-07-17 11:04 | PN- Pulmonary ---
Subjective HPI/Critical Care Issues: Doing better Afebrile sputum showing gram positive cocci Objective Current Medications: Current Medications Sig/Shante Start time Last Medication Dose Route Stop Time Status Admin Acetaminophen 0 .STK-MED ONE 07/16 1934 DC PO Acetaminophen 650 MG Q6P PRN 07/16 1800 AC 07/16 PO 1936 Acetaminophen/ 1 TAB Q6P PRN 07/16 1800 AC Hydrocodone Bitart PO Albuterol Sulfate 2 PUF Q4-6 PRN PRN 07/16 1845 DC INH Albuterol Sulfate 3 ML Q4H PRN 07/16 1845 DC INH Albuterol Sulfate 3 ML ONCE ONE 07/16 1515 DC 07/16 INH 07/16 1516 1559 Aspirin Buffered 81 MG DAILY 07/17 1000 AC 07/17 PO 0911 Atorvastatin Calcium 40 MG DAILY@1700 07/17 1700 AC PO Azithromycin 500 MG DAILY 07/17 1000 AC 07/17 Dextrose/Water 250 ML IV 0913 Azithromycin 500 MG ONCE ONE 07/16 1545 DC 07/16 Dextrose/Water 250 ML IV 07/16 1644 1833 Ceftriaxone Sodium 1,000 MG DAILY 07/17 1000 AC 07/17 IV 0913 Ceftriaxone Sodium 0 .STK-MED ONE 07/16 1709 DC .ROUTE Ceftriaxone Sodium 1,000 MG ONCE ONE 07/16 1545 DC 07/16 IV 07/16 1546 1726 Fenofibrate 48 MG DAILY 07/17 1000 AC 07/17 PO 0913 Folic Acid 1 MG DAILY 07/17 1000 AC 07/17 PO 0911 Heparin Sodium 5,000 UNIT Q8 07/16 2200 AC 07/17 (Porcine) SC 0625 Hydromorphone HCl 0.5 MG Q4P PRN 07/16 1800 AC IV Ipratropium [place] 2.5 ML ONCE ONE 07/16 1515 DC 07/16 INH 07/16 1516 1559 Lorazepam 0.5 MG TID PRN 07/17 1015 AC PO 07/24 1014 Lorazepam 2 MG Q12P PRN 07/16 1845 CAN PO Metoprolol Tartrate 25 MG BID 07/16 2200 AC 07/17 PO 0911 Prednisone 0 .STK-MED ONE 07/16 1922 DC PO Prednisone 40 MG DAILY 07/16 1900 AC 07/17 PO 0912 Sodium Chloride 1,000 ML Q10H 07/16 1800 DC 07/17 IV 0625 Sodium Chloride 500 ML BOLUS ONE 07/16 1615 DC 07/16 IV 07/16 1714 1653 Sodium Chloride 500 ML BOLUS ONE 07/16 1515 DC 07/16 IV 07/16 1614 1653 Tiotropium [place] 1 PUF DAILY 07/17 1000 AC 07/17 INH 0914 Vancomycin HCl 1,000 MG ONCE ONE 07/16 1900 DC 07/16 Dextrose/Water 250 ML IV 07/16 Vital Signs & I&O Last 24 Hrs of Vitals and I&O: Vital Signs Date Time Temp Pulse Resp B/P Pulse O2 O2 Flow FiO2 Ox Delivery Rate 07/17 0928 98.9 73 20 120/60 95 Nasal 3.0L Cannula 07/17 0911 99.3 78 24 126/74 07/16 2241 92 Nasal 3.0L Cannula 07/16 2235 78 126/74 07/16 2045 99.3 98 24 126/74 94 Nasal 3.0L Cannula 07/16 1936 100.9 07/16 1926 100.9 90 22 141/63 95 Nasal 2.0L Cannula 07/16 1600 94 Nasal 2.0L Cannula 07/16 1557 93 Room Air 07/16 1556 98.0 90 22 117/63 98 Nasal 2.0L Cannula 07/16 1431 98.8 93 20 97/67 98 Room Air Intake & Output 07/17 1600 07/17 0800 07/17 0000 Intake Total 1150 1750 Output Total 700 300 Balance 450 1450 Intake, IV 800 1300 Intake, Oral 350 450 Number 0 0 Bowel Movements Output, Urine 700 300 Patient 170 lb Weight Impression/Plan Impression/Plan Impression/Plan: Exam: General: Patient awake without any distress CVS: S1 plus S2 without any murmur or gallops Chest: Few scattered crepitation without any wheeze. Overall decreased air entry at the bases. There is no respiratory distress. Has crackles in the right base Abdomen: Soft nontender, bowel sound present, no guarding or rebound ASSISTANT PROFESSOR OF CHEMISTRY: Awake alert oriented without any focal neuro deficit and follows command appropriately Extremities: No edema; no clubbing or cyanosis noted SIGNIFICANT DATA chest x-ray showed significant emphysema with right lower lobe pneumonia Chest CT scan done in 05/14/2016 showed advanced emphysema, prior granulomatous disease, stable right lower lobe and inferior lingular parenchymal scarring no pulmonary nodule. Previous chest x-ray had showed similar findings. Cultures unremarkable so far influenza negative IMPRESSION This is a gentleman with end-stage COPD with advanced emphysema, previous granulomatous lung disease, previous parenchymal scarring, coronary artery disease with previous CABG, previous abd aortic aneurysm status post repair, previous inferior wall AR, dyslipidemia, peripheral vascular disease, osteoarthritis, diverticular disease in the past with hemicolectomy, BPH, degenerative disc disease with previous low back surgery and cervical disease surgery, previous nephrolithiasis, chronic kidney disease stage 3, recent worsening memory loss with weight loss now has * Community-acquired pneumonia in a gentleman who has significant COPD who did not respond to by mouth cefuroxime. Hence bacteria such as staph aureus needs to be ruled out * Initial Significant bandemia, mild elevated lactic acid, increase anion gap suggestive of early sepsis * Peripheral vascular disease, ischemic heart disease with no clinical evidence suggestive of activity ischemia. His troponin is within normal limits. 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 * Significant COPD with no evidence of severe active wheezing however patient does seem to have severe pneumonia hence would require steroid therapy RECOMMENDATION * Cont vanco one more dose till sputum culture is back * Continue ceftriaxone and azithromycin * Sputum culture * Prednisone 40 mg daily * Nebulizer therapy only as needed use ipratropium avoid albuterol
[2016-07-17 16:25] VITALS: BP 110/60
--- NOTE | 2016-07-17 18:56 | Cons- Cardiology ---
General Information and HPI Consulting Request Date of Consult: 07/17/16 Requested By: OCTAVIO ESTRADA,DULCE Dykes Source of Information: patient, family, old records Exam Limitations: poor historian History of Present Illness: Mr. Aaron Mccarthy is a 75-year-old male with a longstanding history of tobacco use discontinued in 2004, COPD, hypertension, dyslipidemia, abdominal aortic aneurysm status post repair, thoracic aortic aneurysm and coronary artery disease (status post inferior wall myocardial infarction in 1983 , managed medically after cardiac catheterization; unstabe angina pectoris in February 1995 leading to coronary artery bypass grafting x3 with a MENDEZ graft to his left anterior descending artery and a "skip" saphenous vein graft to his first and second marginal branches), who presented to the ED on 07/16/2016 on the advice of his interior design program chair (Dorie Zaldivar M.D.) for intravenous antimicrobial therapy following failed by mouth outpatient antimicrobial therapy for a right lower lobe community acquired pneumonia who we are asked to evaluate and help manage in regard to "electrocardiographic changes". Today, Mr. Mccarthy states that he is feeling improved. He denies any chest discomfort, palpitations, fever, chills, and feels as though his breathing is much better. He does still have what he describes as a "dry cough". Allergies/Medications Allergies: Coded Allergies: NO KNOWN ALLERGIES (07/16/16) Home Med List: Albuterol Sulfate (Proair Hfa) 90 MCG HFA.AER.AD 2 PUF INH Q4-6 PRN PRN COPD (Reported) Aspirin (Ecotrin*) 81 MG TABLET.DR 1 TAB PO DAILY CORONARY HEART DISEASE ( Reported) Atorvastatin Calcium 40 MG TABLET 1 TAB PO DAILY CHOLESTEROL (Reported) Fenofibrate (Tricor) 48 MG TABLET 1 TAB PO DAILY TRIGLYCERIDES (Reported) Folic Acid 1 MG TABLET 1 TAB PO DAILY FOLIC ACID (Reported) Lorazepam 2 MG TABLET 1 TAB PO Q12 PRN ANXIETY (Reported) Metoprolol Tartrate 25 MG TABLET 1 TAB PO BID CORONARY HEART DISEASE ( Reported) Tiotropium [place] (Spiriva) 18 MCG CAP.W.DEV 1 CAP INH DAILY copd (Reported) Review of Systems Review of Systems: A 14 point system review was obtained and was knocked territory, other than as above. Past History Travel History Traveled to [place] past 21 day No Medical History Blood Transfusion Hx: No Neurological: NONE EENT: NONE Cardiovascular: angina, CAD, CHF, hypertension, hyperlipidemia, myocardial infarction Respiratory: COPD Gastrointestinal: NONE Hepatic: NONE Renal: NONE Musculoskeletal: chronic back pain Psychiatric: NONE Endocrine: NONE Blood Disorders: NONE Cancer(s): NONE RUBBER AND PLASTICS WORKER/Reproductive: NONE Surgical History Surgical History: CABG Psychosocial History Where Do You Live? Home Services at Home: None Smoking Status: Former Smoker Exam & Diagnostic Data Vital Signs and I&O Vital Signs Date Time Temp Pulse Resp B/P Pulse O2 O2 Flow FiO2 Ox Delivery Rate 07/17 1625 97.7 75 18 110/60 93 Nasal 1.5L Cannula 07/17 1254 95 Nasal 1.5L Cannula 07/17 1250 Nasal 2.0L Cannula 07/17 0928 98.9 73 20 120/60 95 Nasal 3.0L Cannula 07/17 0911 99.3 78 24 126/74 07/17 0800 97 Nasal 3.0L Cannula 07/16 2241 92 Nasal 3.0L Cannula 07/16 2235 78 126/74 07/16 2045 99.3 98 24 126/74 94 Nasal 3.0L Cannula 07/16 1936 100.9 07/16 1926 100.9 90 22 141/63 95 Nasal 2.0L Cannula Intake & Output 07/17 1600 07/17 0800 07/17 0000 07/16 1600 07/16 0800 07/16 0000 Intake Total 1150 1750 Output Total 700 300 Balance 450 1450 Intake, IV 800 1300 Intake, Oral 350 450 Number 0 0 Bowel Movements Output, Urine 700 300 Patient 170 lb 165 lb Weight Physical Exam: Well-developed, well-nourished elderly male in no acute distress with nasal oxygen in place. Vital signs: See above. HEENT: Normocephalic, atraumatic, EOMI, slightly dry mucous membranes. Neck: No JVD, no bruits. Nose: Decreased breath sounds bilaterally with crackles at the right base. Heart: S1, S2 (both distant) with no murmur, gallop or rub appreciated. PMI fifth ICS at [facility]. Abdomen: Soft, nontender, positive bowel sounds. Extremities: No edema. Labs/Ramakrishna Results: Laboratory Tests 07/17 07/17 0640 0022 Chemistry Sodium (137 - 145 mmol/L) 145 Potassium (3.5 - 5.1 mmol/L) 4.2 Chloride (98 - 107 mmol/L) 111 H Carbon Dioxide (22 - 30 mmol/L) 21 L Anion Gap (5 - 16) 13 BUN (9 - 20 mg/dL) 24 H Creatinine (0.7 - 1.2 mg/dL) 1.4 H Estimated GFR (>60 ml/min) 49 L BUN/Creatinine Ratio (7 - 25 %) 17.1 Lactic Acid (0.7 - 2.1 mmol/L) 1.6 Magnesium (1.6 - 2.3 mg/dL) 1.9 Troponin I (<0.11 ng/ml) < 0.01 Hematology CBC w Diff NO MAN DIFF REQ WBC (4.8 - 10.8 /CUMM) 13.3 H RBC (4.70 - 6.10 /CUMM) 3.70 L Hgb (14.0 - 18.0 G/DL) 12.2 L Hct (42 - 52 %) 36.1 L MCV (80.0 - 94.0 FL) 97.4 H MCH (27.0 - 31.0 PG) 33.0 H RDW (11.5 - 14.5 %) 13.6 Plt Count (130 - 400 /CUMM) 206 MPV (7.4 - 10.4 FL) 7.9 Gran % (42.2 - 75.2 %) 87.9 H Lymphocytes % (20.5 - 51.1 %) 5.3 L Monocytes % (1.7 - 9.3 %) 6.8 Eosinophils % (0 - 5 %) 0 Basophils % (0.0 - 2.0 %) 0 L Absolute Granulocytes (1.4 - 6.5 /CUMM) 11.7 H Absolute Lymphocytes (1.2 - 3.4 /CUMM) 0.7 L Absolute Monocytes (0.10 - 0.60 /CUMM) 0.9 H Absolute Eosinophils (0.0 - 0.7 /CUMM) 0 Absolute Basophils (0.0 - 0.2 /CUMM) 0 PUBS MCHC (33.0 - 37.0 G/DL) 33.9 07/16 07/16 07/16 2119 2115 1831 Chemistry Lactic Acid (0.7 - 2.1 mmol/L) 2.5 H Troponin I (<0.11 ng/ml) < 0.01 Urines Urine Color (YEL,AMB,STR) YEL Urine Clarity (CLEAR) CLEAR Urine pH (5.0 - 8.0) 6.0 Ur Specific [place] (1.001 - 1.035) 1.020 Urine Protein (NEG,<30 MG/DL) NEG Urine Ketones (NEG) NEG Urine Nitrite (NEG) NEG Urine Bilirubin (NEG) NEG Urine Urobilinogen (0.1 - 1.0 EU/dl) 0.2 Ur Leukocyte Esterase (NEG) NEG Ur Microscopic EXAM NOT REQUIRED Urine Hemoglobin (NEG) NEG Urine Glucose (N MG/DL) NEG 07/16 07/16 1831 1540 Chemistry Sodium (137 - 145 mmol/L) 144 Potassium (3.5 - 5.1 mmol/L) 4.1 Chloride (98 - 107 mmol/L) 105 Carbon Dioxide (22 - 30 mmol/L) 21 L Anion Gap (5 - 16) 18 H BUN (9 - 20 mg/dL) 29 H Creatinine (0.7 - 1.2 mg/dL) 1.9 H Estimated GFR (>60 ml/min) 35 L BUN/Creatinine Ratio (7 - 25 %) 15.3 Glucose (65 - 99 mg/dL) 92 Lactic Acid (0.7 - 2.1 mmol/L) 2.5 H 2.6 H Calcium (8.4 - 10.2 mg/dL) 10.1 Total Bilirubin (0.2 - 1.3 mg/dL) 1.2 AST (17 - 59 U/L) 26 ALT (21 - 72 U/L) 23 Alkaline Phosphatase (< 127 U/L) 54 Troponin I (<0.11 ng/ml) < 0.01 Total Protein (6.3 - 8.2 g/dL) 7.7 Albumin (3.5 - 5.0 g/dL) 4.6 Globulin (1.9 - 4.2 gm/dL) 3.1 Albumin/Globulin Ratio (1.1 - 2.2 %) 1.5 Coagulation PT (9.4 - 12.5 SEC) 14.4 H INR (0.90 - 1.17) 1.38 H APTT (25 - 37 SEC) 32 Hematology CBC w Diff MAN DIFF ORDERED WBC (4.8 - 10.8 /CUMM) 15.4 H RBC (4.70 - 6.10 /CUMM) 4.52 L Hgb (14.0 - 18.0 G/DL) 14.9 Hct (42 - 52 %) 44.2 MCV (80.0 - 94.0 FL) 97.8 H MCH (27.0 - 31.0 PG) 32.9 H RDW (11.5 - 14.5 %) 14.2 Plt Count (130 - 400 /CUMM) 231 MPV (7.4 - 10.4 FL) 7.2 L Gran % (42.2 - 75.2 %) 91.3 H Lymphocytes % (20.5 - 51.1 %) 2.8 L Monocytes % (1.7 - 9.3 %) 5.7 Eosinophils % (0 - 5 %) 0 Basophils % (0.0 - 2.0 %) 0.2 Absolute Granulocytes (1.4 - 6.5 /CUMM) 14.1 H Segmented Neutrophils (42.2 - 75.2 %) 80 H Band Neutrophils (0.0 - 5.0 %) 8 H Absolute Lymphocytes (1.2 - 3.4 /CUMM) 0.4 L Lymphocytes (20.5 - 51.1 %) 5 L Monocytes (1.7 - 9.3 %) 7 Absolute Monocytes (0.10 - 0.60 /CUMM) 0.9 H Absolute Eosinophils (0.0 - 0.7 /CUMM) 0 Absolute Basophils (0.0 - 0.2 /CUMM) 0 Platelet Estimate (ADEQUATE) ADEQUATE Normocytic RBCs VERIFIED Normochromic RBCs VERIFIED PUBS MCHC (33.0 - 37.0 G/DL) 33.7 Diagnostic Data EKG Results (07/16/2016) sinus rhythm, possible left atrial normality, leftward axis, RSR' conduction pattern leads V1-V2, and minor nondiagnostic ST-T wave abnormalities. Faster rate and new minor nondiagnostic ST-T wave changes when compared to previous tracing (04/30/2015). CXR Results (07/16/2016) Pulmonary emphysema. Right lower lobe pneumonia. Assessment/Plan Assessment/Plan Community-acquired pneumonia right lower lobe pneumonia +/- acute exacerbation of COPD in this former heavy smoker with known coronary artery disease and risk equivalent/multiple risk factors for the same. Mr. Mccarthy has significantly improved following hospitalization for antimicrobial therapy. The electrocardiographic changes observed on his initial 12-lead tracing are nonspecific and likely the result of his acute illness with faster heart rates secondary to a degree of intravascular depletion from his infection, poor by mouth intake, etc. and did not suggest changes secondary to significant myocardial ischemia. He has had no recent exertional type chest discomfort to suggest angina pectoris and despite his acute kidney injury has had no troponin I elevation. As expected, with management of his pneumonia, IV fluids, and improved by mouth intake is electrocardiogram has improved. I will check his records in my office to see when he last had a twelve-lead electrocardiogram performed, as well as, to see when he last had an echocardiogram, stress test, etc. For now, I would recommend maintaining him on his present regimen with close follow-up of his renal function. Continue DVT prophylaxis. Further recommendations will follow, Thank you Consult Acknowledgment - Thank you for your consult request.
[2016-07-17 20:43] VITALS: BP 136/66
[2016-07-18 06:42] VITALS: BP 136/78
--- NOTE | 2016-07-18 08:18 | PN- Housestaff ---
ERMIAS ESTRADA,MARJORIE 07/18/16817: Subjective Follow-up For: Right lower lobe pneumonia COPD acute exacerbation Early Sepsis Subjective: Patient feeling fine today. Denies any overnight events. Patient was transferred from telemetry floor overnight as cardiology has cleared. Complains of cough, reduced compared to admission. No fever, chills, chest pains chest pains. MAXIMUM TEMPERATURE was 98.9. Review of Systems Constitutional: Reports: see HPI. Objective Last 24 Hrs of Vital Signs/I&O Vital Signs Date Time Temp Pulse Resp B/P Pulse O2 O2 Flow FiO2 Ox Delivery Rate 07/18 0940 82 136/78 07/18 0909 94 Nasal 2.0L Cannula 07/18 0642 97.9 82 18 136/78 95 Nasal Cannula 07/18 0000 94 Nasal 1.5L Cannula 07/17 2115 94 Nasal 2.0L Cannula 07/17 2043 97.6 74 18 136/66 94 Nasal 1.5L Cannula 07/17 2007 82 130/68 07/17 1625 97.7 75 18 110/60 93 Nasal 1.5L Cannula 07/17 1600 95 Nasal 1.5L Cannula 07/17 1254 95 Nasal 1.5L Cannula 07/17 1250 Nasal 2.0L Cannula Intake & Output 07/18 1600 07/18 0800 07/18 0000 Intake Total 120 200 Output Total 700 300 Balance -580 -100 Intake, Oral 120 200 Output, Urine 700 300 Physical Exam General Appearance: Alert, Oriented X3, Cooperative, No Acute Distress Skin: No Rashes Cardiovascular: Regular Rate, Normal S1, Normal S2, No Murmurs Lungs: bilateral decreased breath sounds., Mild basal crackles present. Abdomen: Normal Bowel Sounds, Soft, No Tenderness Extremities: No Clubbing, No Cyanosis, No Edema Current Medications: Current Medications Sig/Shante Start time Last Medication Dose Route Stop Time Status Admin Acetaminophen 650 MG Q6P PRN 07/16 1800 AC 07/16 PO 1936 Acetaminophen/ 1 TAB Q6P PRN 07/16 1800 AC Hydrocodone Bitart PO Albuterol Sulfate 3 ML BID 07/17 2200 AC 07/18 INH 0906 Aspirin Buffered 81 MG DAILY 07/17 1000 AC 07/18 PO 0939 Atorvastatin Calcium 40 MG DAILY@1700 07/17 1700 AC 07/17 PO 1736 Azithromycin 500 MG DAILY 07/17 1000 AC 07/18 Dextrose/Water 250 ML IV 0957 Bisacodyl 10 MG DAILY 07/17 1630 AC 07/18 PO 0938 Ceftriaxone Sodium 1,000 MG DAILY 07/17 1000 AC 07/18 IV 0941 Fenofibrate 48 MG DAILY 07/17 1000 AC 07/18 PO 0938 Folic Acid 1 MG DAILY 07/17 1000 AC 07/18 PO 0939 Heparin Sodium 5,000 UNIT Q8 07/16 2200 AC 07/18 (Porcine) SC 0516 Hydromorphone HCl 0.5 MG Q4P PRN 07/16 1800 AC IV Lorazepam 0.5 MG TID PRN 07/17 1015 AC 07/18 PO 07/24 1014 0046 Metoprolol Tartrate 25 MG BID 07/16 2200 AC 07/18 PO 0940 Polyethylene Glycol 17 GM DAILY 07/17 1630 AC 07/18 PO 0941 Prednisone 40 MG DAILY 07/16 1900 AC 07/18 PO 0938 Tiotropium [place] 1 PUF DAILY 07/17 1000 AC 07/18 INH 0941 Vancomycin HCl 1,000 MG DAILY 07/17 1132 AC 07/17 Dextrose/Water 250 ML IV 1348 Assessment/Plan Assessment: Patient is a 75-year-old male with significant past medical history of coronary artery disease, status post CABG,hypertension, hyperlipidemia, chronic back pain , abdominal aortic aneurysm , COPD, presented with chief complaints of rapidly progressive shortness of breath, unable to sleep overnight, tiredness, and cough with yellowish-green expectoration. Since morning he started having confusion, chills, dizziness, hallucinations, and lightheadedness, so his brought him to the [facility]. 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 Patient has delivery one more visit vancomycin pending cultures. Sputum culture came back positive for yeast.We will follow Dr. Zaldivar's recommendation - We'll continue prednisone 40 mgs per day - TRC/nebulization - Oxygen with a target of SPO2 more than 92% - Aspiration precaution - We'll continue atorvastatin/fenofibrate/aspirin CODE STATUS- full code DVT prophylaxis-ALPS/Heparin Diet- heart healthy diet Problem List: 1. Lactic acidosis 2. Pneumonia 3. Essential hypertension Pain Ratin Pain Location: Back pian Pain Goal: Remain pain free Pain Plan: Tylenol Tomorrow's Labs & Rationales: Will need labs LILA NAYAK MD 07/18/16 1504: Attending MD Review Statement Attending Statement Attending MD Statement: examined this patient, discuss w/resident/PA/OPERATOR BEARER SYSTEMS, agreed w/resident/PA/OPERATOR BE[employer]ER [employer], reviewed EMR data (avail), discussed with nursing, reviewed images, amended to note Attending Assessment/Plan: Patient seen and examined, feels overall slightly better but was feeling cold. Still has a cough. Still requiring oxygen. Vital Signs Date Time Temp Pulse Resp B/P Pulse O2 O2 Flow FiO2 Ox Delivery Rate 07/18 1422 98.0 80 20 122/74 92 Nasal 1.0L Cannula 07/18 0940 82 136/78 07/18 0909 94 Nasal 2.0L Cannula 07/18 0800 97 Nasal 2.0L Cannula 07/18 0642 97.9 82 18 136/78 95 Nasal Cannula 07/18 0000 94 Nasal 1.5L Cannula 07/17 2115 94 Nasal 2.0L Cannula 07/17 2043 97.6 74 18 136/66 94 Nasal 1.5L Cannula 07/17 2007 82 130/68 07/17 1625 97.7 75 18 110/60 93 Nasal 1.5L Cannula 07/17 1600 95 Nasal 1.5L Cannula ON EXAM; aox3, nad. cv; s1,s2, rrr. resp; mild crackles at right base. abd; soft, nt, bs+ ext; no edema no labs. A/P; 75-year-old male underlying COPD and emphysema, CAD status post CABG and CKD. He is here with a right lower lobe pneumonia. He failed outpatient treatment with cefuroxime. Patient did receive vancomycin but currently on ceftriaxone and azithromycin. Sputum culture grew yeast. He is also getting 40 mg of prednisone. He is also getting TRC nebs. Appreciate pulmonary input. Continue all current medications. DVT prophylaxis: Heparin subcutaneous. Please try to taper her oxygen. Patient could possibly be discharged tomorrow.
--- NOTE | 2016-07-18 10:15 | Patient Discharge Instructions ---
Discharge Instructions General Discharge Information You were seen/treated for: Pneumonia Special Instructions: 1. Follow-up with a primary care physician in a week upon discharge. 2. Follow up with Dr. Zaldivar for further evaluation of weight loss/cough. 3. Complete the course of antibiotics Diet Recommended Diet: Heart Healthy Activity Full Activity/No Limits: Yes (as tolerated) Acute Coronary Syndrome Inclusion Criteria At DC or during hospital stay patient has or had the following: ACS DIAGNOSIS No Discharge Core Measures Meds if any: Prescribed or Continued at Discharge Meds if any: NOT Prescribed or Continued at Discharge Congestive Heart Failure Inclusion Criteria At DC or during hospital stay patient has or had the following: CHF DIAGNOSIS No Discharge Core Measures Meds if any: Prescribed or Continued at Discharge Meds if any: NOT Prescribed or Continued at Discharge Cerebrovascular accident Inclusion Criteria At DC or during hospital stay patient has or had the following: CVA/TIA Diagnosis No Discharge Core Measures Meds if any: Prescribed or Continued at Discharge Meds if any: NOT Prescribed or Continued at Discharge Venous thromboembolism Inclusion Criteria VTE Diagnosis No VTE Type NONE VTE Confirmed by (Test) NONE Discharge Core Measures - Per Current guidelines, there needs to be overlap - treatment for the first 5 days of Warfarin therapy. - If discharged on Warfarin prior to 5 days of - overlap therapy, the patient will need to be - assessed for post discharge needs including - *Post discharge parental anticoagulation - *Warfarin and/or parental anticoagulation education - *Follow up date to check INR post discharge At least 5 days overlap therapy as Inpatient No Meds if any: Prescribed or Continued at Discharge Note: Overlap Therapy is Warfarin and Anticoagulant Meds if any: NOT Prescribed or Continued at Discharge
--- NOTE | 2016-07-18 13:10 | PN- Pulmonary ---
Subjective HPI/Critical Care Issues: Patient feeling fine today. Denies any overnight events. Patient was transferred from telemetry floor overnight as cardiology has cleared. Complains of cough, reduced compared to admission. No fever, chills, chest pains chest pains. MAXIMUM TEMPERATURE was 98.9. Objective Current Medications: Current Medications Sig/Shante Start time Last Medication Dose Route Stop Time Status Admin Acetaminophen 650 MG Q6P PRN 07/16 1800 AC 07/16 PO 1936 Acetaminophen/ 1 TAB Q6P PRN 07/16 1800 AC Hydrocodone Bitart PO Albuterol Sulfate 3 ML BID 07/17 2200 AC 07/18 INH 0906 Aspirin Buffered 81 MG DAILY 07/17 1000 AC 07/18 PO 0939 Atorvastatin Calcium 40 MG DAILY@1700 07/17 1700 AC 07/17 PO 1736 Azithromycin 500 MG DAILY 07/17 1000 AC 07/18 Dextrose/Water 250 ML IV 0957 Bisacodyl 10 MG DAILY 07/17 1630 AC 07/18 PO 0938 Ceftriaxone Sodium 1,000 MG DAILY 07/17 1000 AC 07/18 IV 0941 Fenofibrate 48 MG DAILY 07/17 1000 AC 07/18 PO 0938 Folic Acid 1 MG DAILY 07/17 1000 AC 07/18 PO 0939 Heparin Sodium 5,000 UNIT Q8 07/16 2200 AC 07/18 (Porcine) SC 0516 Hydromorphone HCl 0.5 MG Q4P PRN 07/16 1800 AC IV Lorazepam 0.5 MG TID PRN 07/17 1015 AC 07/18 PO 07/24 1014 1246 Metoprolol Tartrate 25 MG BID 07/16 2200 AC 07/18 PO 0940 Polyethylene Glycol 17 GM DAILY 07/17 1630 AC 07/18 PO 0941 Prednisone 40 MG DAILY 07/16 1900 AC 07/18 PO 0938 Tiotropium [place] 1 PUF DAILY 07/17 1000 AC 07/18 INH 0941 Vancomycin HCl 1,000 MG DAILY 07/17 1132 DC 07/17 Dextrose/Water 250 ML IV 1348 Vital Signs & I&O Last 24 Hrs of Vitals and I&O: Vital Signs Date Time Temp Pulse Resp B/P Pulse O2 O2 Flow FiO2 Ox Delivery Rate 07/18 0940 82 136/78 07/18 0909 94 Nasal 2.0L Cannula 07/18 0800 97 Nasal 2.0L Cannula 07/18 0642 97.9 82 18 136/78 95 Nasal Cannula 07/18 0000 94 Nasal 1.5L Cannula 07/175 94 Nasal 2.0L Cannula 07/173 97.6 74 18 136/66 94 Nasal 1.5L Cannula 07/17 2007 82 130/68 07/17 1625 97.7 75 18 110/60 93 Nasal 1.5L Cannula 07/17 1600 95 Nasal 1.5L Cannula Intake & Output 07/18 1600 07/18 0800 07/18 0000 Intake Total 120 200 Output Total 700 300 Balance -580 -100 Intake, Oral 120 200 Output, Urine 700 300 Impression/Plan Impression/Plan Impression/Plan: Exam: General: Patient awake without any distress CVS: S1 plus S2 without any murmur or gallops Chest: Few scattered crepitation without any wheeze. Overall decreased air entry at the bases. There is no respiratory distress. Has crackles in the right base Abdomen: Soft nontender, bowel sound present, no guarding or rebound SUPERINTENDENT MAINTENANCE: Awake alert oriented without any focal neuro deficit and follows command appropriately Extremities: No edema; no clubbing or cyanosis noted SIGNIFICANT DATA chest x-ray showed significant emphysema with right lower lobe pneumonia Chest CT scan done in 05/14/2016 showed advanced emphysema, prior granulomatous disease, stable right lower lobe and inferior lingular parenchymal scarring no pulmonary nodule. Previous chest x-ray had showed similar findings. Cultures unremarkable so far influenza negative IMPRESSION This is a gentleman with end-stage COPD with advanced emphysema, previous granulomatous lung disease, previous parenchymal scarring, coronary artery disease with previous CABG, previous abd aortic aneurysm status post repair, previous inferior wall IN, dyslipidemia, peripheral vascular disease, osteoarthritis, diverticular disease in the past with hemicolectomy, BPH, degenerative disc disease with previous low back surgery and cervical disease surgery, previous nephrolithiasis, chronic kidney disease stage 3, recent worsening memory loss with weight loss now has * Community-acquired pneumonia in a gentleman who has significant COPD who did not respond to by mouth cefuroxime. * Initial Significant bandemia, mild elevated lactic acid, increase anion gap suggestive of early sepsis * Peripheral vascular disease, ischemic heart disease with no clinical evidence suggestive of activity ischemia. His troponin is within normal limits. 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 * Significant COPD with no evidence of severe active wheezing however patient does seem to have severe pneumonia hence would require steroid therapy RECOMMENDATION * Continue ceftriaxone and azithromycin, Rpt cxr * Sputum culture so far shows no sig growth * Prednisone 40 mg daily and dc after five days total duration of abx * Nebulizer therapy only as needed use ipratropium avoid albuterol
[2016-07-18 14:22] VITALS: BP 122/74
--- NOTE | 2016-07-18 17:52 | RADIOLOGY REPORT ---
EXAMINATION: XR CHEST CLINICAL INFORMATION: Persistent cough, hypoxia. COMPARISON: 07/16/2016 TECHNIQUE: PA and lateral views of the chest were obtained. FINDINGS: Median sternotomy wires appear intact. Surgical clips overlie the mediastinum. The lungs are hyperexpanded. Prominent markings are seen at the right mid to lower lung, similar to prior. No pleural effusion or pneumothorax. The cardiomediastinal silhouette is unchanged. IMPRESSION: Similar increased markings at the right mid to lower lung, suspicious for pneumonia.
[2016-07-18 22:14] VITALS: BP 140/86
[2016-07-19 06:30] VITALS: BP 132/78
--- NOTE | 2016-07-19 07:30 | PN- Housestaff ---
ERMIAS ESTRADA,MARJORIE 07/19/16 0729: Subjective Follow-up For: Right lower lobe pneumonia COPD acute exacerbation Subjective: Patient feels comfortable this morning. Was having his breakfast. No overnight events reported. Currently on room air saturating more than 90%. Review of Systems Constitutional: Reports: see HPI. Objective Last 24 Hrs of Vital Signs/I&O Vital Signs Date Time Temp Pulse Resp B/P Pulse O2 O2 Flow FiO2 Ox Delivery Rate 07/19 0814 80 132/78 07/19 0630 97.8 80 20 132/78 91 Room Air 07/18 2214 97.6 85 24 140/86 95 Room Air 07/18 2121 67 128/80 07/18 1900 95 Room Air 07/18 1845 94 Nasal 1.0L Cannula 07/18 1830 95 Nasal 1.0L Cannula 07/18 1810 82 Room Air 07/18 1800 95 Nasal 1.0L Cannula 07/18 1600 94 Nasal 1.0L Cannula 07/18 1422 98.0 80 20 122/74 92 Nasal 1.0L Cannula 07/18 0940 82 136/78 07/18 0909 94 Nasal 2.0L Cannula Intake & Output 07/19 1600 07/19 0800 07/19 0000 Intake Total 760 Output Total Balance 760 Intake, IV 10 Intake, Oral 750 Number 1 Bowel Movements Physical Exam General Appearance: Alert, Oriented X3, Cooperative, No Acute Distress Skin: No Rashes, No Breakdown Cardiovascular: Regular Rate, Normal S1, Normal S2, No Murmurs Lungs: Clear to Auscultation, bilateral decreased breath sounds Abdomen: Normal Bowel Sounds, Soft, No Tenderness Extremities: No Clubbing, No Cyanosis, No Edema Current Medications: Current Medications Sig/Shante Start time Last Medication Dose Route Stop Time Status Admin Acetaminophen 650 MG Q6P PRN 07/16 1800 AC 07/16 PO 1936 Acetaminophen/ 1 TAB Q6P PRN 07/16 1800 AC Hydrocodone Bitart PO Albuterol Sulfate 3 ML BID 07/17 2200 AC 07/18 INH 1830 Aspirin Buffered 81 MG DAILY 07/17 1000 AC 07/19 PO 0811 Atorvastatin Calcium 40 MG DAILY@1700 07/17 1700 AC 07/18 PO 1616 Azithromycin 500 MG DAILY 07/17 1000 AC 07/19 Dextrose/Water 250 ML IV 0811 Bisacodyl 10 MG DAILY 07/17 1630 AC 07/19 PO 0812 Ceftriaxone Sodium 1,000 MG DAILY 07/17 1000 AC 07/19 IV 0811 Fenofibrate 48 MG DAILY 07/17 1000 AC 07/19 PO 0812 Folic Acid 1 MG DAILY 07/17 1000 AC 07/19 PO 0811 Heparin Sodium 5,000 UNIT Q8 07/16 2200 AC 07/19 (Porcine) SC 0542 Hydromorphone HCl 0.5 MG Q4P PRN 07/16 1800 AC IV Lorazepam 0.5 MG TID PRN 07/17 1015 AC 07/19 PO 07/24 1014 0811 Metoprolol Tartrate 25 MG BID 07/16 2200 AC 07/19 PO 0814 Patient Medication 1 ED .STK-MED ONE 07/18 1357 DC Teaching ED 07/18 1358 Polyethylene Glycol 17 GM DAILY 07/17 1630 AC 07/19 PO 0812 Prednisone 40 MG DAILY 07/16 1900 AC 07/19 PO 0812 Tiotropium [place] 1 PUF DAILY 07/17 1000 AC 07/19 INH 0812 Vancomycin HCl 1,000 MG DAILY 07/17 1132 DC 07/17 Dextrose/Water 250 ML IV 1348 Assessment/Plan Assessment: Patient is a 75-year-old male with significant past medical history of coronary artery disease, status post CABG,hypertension, hyperlipidemia, chronic back pain , abdominal aortic aneurysm , COPD, presented with chief complaints of rapidly progressive shortness of breath, unable to sleep overnight, tiredness, and cough with yellowish-green expectoration. Since morning he started having confusion, chills, dizziness, hallucinations, and lightheadedness, so his brought him to the [facility]. Today patient is comfortable. On room air. 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 Uterine culture with no growth except for yeast. - Continue by mouth steroids for a total of 5 days - Repeat chest x-ray on 07/18/2016 showed similar increased markings at the right mid to lower lung suspicious for pneumonia - TRC/nebulization - Oxygen with a target of SPO2 more than 92% - Aspiration precaution - We'll continue atorvastatin/fenofibrate/aspirin Will need to follow-up with with his primary care physician further evaluation of underlying malignancy CODE STATUS- full code DVT prophylaxis-ALPS/Heparin Diet- heart healthy diet Problem List: 1. End stage COPD 2. Pneumonia Pain Ratin Pain Location: back Pain Goal: Remain pain free Pain Plan: As mentioned and med list Tomorrow's Labs & Rationales: Patient to be discharged today LILA NAYAK MD 07/19/16 1001: Attending MD Review Statement Attending Statement Attending MD Statement: examined this patient, discuss w/resident/PA/OIL WELL LOGGING ENGINEER, agreed w/resident/PA/OIL WELL LOGGING ENGINEER, reviewed EMR data (avail), discussed with nursing, discussed with case mgmt, reviewed images, amended to note Attending Assessment/Plan: Patient seen and examined, feeling much better. He is not requiring any oxygen. Respiratory culture grew yeast. Patient admitted with community aquired pneumonia. Patient was treated with IV ceftriaxone and Azithro as inpatient. He is medically stable for DC home today. His antibiotics will be switched to po avelox and he will be continued on his prednisone for 2 more days. He will follow up with DR. Zaldivar and Dr. Roa as out patient.
[2016-07-19] MEDS ORDERED: MOXIFLOXACIN H400 M2 PO ×2 (07:48→10:30)
[2016-07-19 08:14] VITALS: BP 132/78
[2016-07-19] MEDS ORDERED: PREDNISONE20 M1 PO ×2 (08:49→11:58)
--- NOTE | 2016-07-19 09:11 | Discharge Summary ---
See Addendum Visit Information Visit Dates Admission Date: 07/16/16 Discharge Date: 08/19/16 Hospital Course Course Attending Physician: MALINI ESTRADA,LILA Primary Care Physician: JONATAN ESTRADA,[place] Hospital Course: Aaron is 85-year-old man with a medical history of known coronary artery disease status post inferior wall myocardial infarction 1993 management medically after a cardiac catheterization, unstable angina in 1994 status post CABG 3 with left internal mammary artery graft to his left anterior descending artery and saphenous vein graft to his first and second marginal branches, abdominal aortic aneurysm status post endovascular arterial repair, hypertension dyslipidemia COPD, history of pulmonary nodules,? Granulomatous disease, diverticular disease status post hemicolectomy sciatica severe degenerative joint disease BPH nephrolithiasis, long hx of tobacco use. She was hospitalized in November 2011 for right lower lobe pneumonia with suspected lung abscess. he presents to the emergency department complaining of several days of dyspnea flulike symptoms, positive sick contact with the flu, productive cough with purulent sputum. Patient failed outpatient treatment with cefuroxime. Vitals and admission blood pressure 97/67, respiration 20, pulse 73, temperature 98.8, oxygen saturation 98% on 2 L nasal cannula. Labs and admission: WBC 13.3, hemoglobin 12.2, hematocrit 36.1, platelet count 206, sodium 145, potassium 4.2, BUN 24, creatinine 1.4., Troponins less than 0.01 Chest x-ray on admission demonstrated a right lower lobe infiltrate Hospital course 1. Community-acquired pneumonia in a gentleman who has significant COPD who did not respond to by mouth cefuroxime: Patient was admitted to telemetry, serial enzymes and EKGs done and ACS rule dout. He was started on ceftriaxone and azithromycin pending blood cultures. Pulmonary consult was obtained recommended to continue ceftaz and azithromycin. He was also started on 40 mg of prednisone for a total of 5 days. He was transferred to floor. Sputum cultures came back positive for Escherichia coli and Streptococcus pneumonia. Repeat chest x- ray obtained showed similar findings as of admission chest x-ray. He was continued on TRC nebulizes with aspiration precautions. He was discharged on by mouth Moxifloxacin for a total of 14 days. Recommended to follow-up with his day haul or farm charter bus driver outpatient. 2. End-stage COPD (emphysema: He was continued on his nebulizes and maintained on TRC nebulizes 1 he was in the hospital. 3. CAD/CABG: Was continued on home dose of aspirin and atorvastatin. 4. CKD stage III: Patient's creatinine remained stable. Patient has history of recurrent pneumonia with interval weight loss and given his long-standing history of tobacco use he should be further investigated for underlying malignancy. He should be followed up as an outpatient by his primary care physician. Patient informed to follow-up with Dr. Roa. Allergies: Coded Allergies: NO KNOWN ALLERGIES (07/16/16) Disposition Summary Disposition Principal Diagnosis: 1. Community-acquired pneumonia in a gentleman who has significant COPD Additional Diagnosis: End-stage COPD (emphysema CAD/CABG Stage III CKD Discharge Disposition: home or self care Discharge Instructions General Discharge Information Code Status: Full Code Patient's Diet: Heart healthy diet Patient's Activity: As tolerated Follow-Up Instructions/Appts: 1. Follow-up with a primary care physician in a week upon discharge. 2. Follow up with Dr. Zaldivar for further evaluation of weight loss/cough. 3. Complete the course of antibiotics Medications at Discharge Discharge Medications: Continue taking these medications: Tiotropium [place] (Spiriva) 18 MCG CAP.W.DEV 1 Capsule Inhale through mouth DAILY Qty = 30 Comments: Last Taken: 07/19/16 Time: 8AM Fenofibrate (Tricor) 48 MG TABLET 1 Tablet ORAL DAILY Qty = 90 Comments: Last Taken: 07/19/16 Time: 8 AM Albuterol Sulfate (Proair Hfa) 90 MCG HFA.AER.AD 2 Puff Inhale through mouth EVERY 4-6 HOURS NEEDED as needed for COPD Comments: NOT GIVEN IN HOSPITAL Lorazepam (Lorazepam) 2 MG TABLET 1 Tablet ORAL EVERY 12 HOURS as needed for ANXIETY Comments: Last Taken: 07/19/16 (0.5 MG) Time: 8 AM Atorvastatin Calcium (Atorvastatin Calcium) 40 MG TABLET 1 Tablet ORAL DAILY Qty = 90 Comments: Last Taken: 07/18/16 Time: 4 PM Folic Acid (Folic Acid) 1 MG TABLET 1 Tablet ORAL DAILY Qty = 90 Comments: Last Taken: 07/19/16 Time: 8AM Metoprolol Tartrate (Metoprolol Tartrate) 25 MG TABLET 1 Tablet ORAL TWICE DAILY Qty = 180 Comments: Last Taken: 07/19/16 Time: 8AM Aspirin (Ecotrin*) 81 MG TABLET.DR 1 Tablet ORAL DAILY Comments: Last Taken: 07/19/16 Time: 8 AM Start taking the following new medications: Moxifloxacin HCl (Moxifloxacin HCl) 400 MG TABLET 1 Tablet ORAL DAILY Days = 11 No Refills Comments: NOT GIVEN IN HOSPITAL Prednisone (Prednisone) 20 MG TABLET 2 Tablet ORAL DAILY Days = 2 No Refills Comments: Last Taken: 07/19/16 Time: 8 AM Copies To: JONATAN ESTRADA,BRANDIE
--- NOTE | 2016-07-19 09:44 | PN- Pulmonary ---
Subjective HPI/Critical Care Issues: Clinically much improved No cough Sputum production is improved No fever or chills Objective Current Medications: Current Medications Sig/Shante Start time Last Medication Dose Route Stop Time Status Admin Acetaminophen 650 MG Q6P PRN 07/16 1800 AC 07/16 PO 1936 Acetaminophen/ 1 TAB Q6P PRN 07/16 1800 AC Hydrocodone Bitart PO Albuterol Sulfate 3 ML BID 07/17 2200 AC 07/19 INH 0919 Aspirin Buffered 81 MG DAILY 07/17 1000 AC 07/19 PO 0811 Atorvastatin Calcium 40 MG DAILY@1700 07/17 1700 AC 07/18 PO 1616 Azithromycin 500 MG DAILY 07/17 1000 AC 07/19 Dextrose/Water 250 ML IV 0811 Bisacodyl 10 MG DAILY 07/17 1630 AC 07/19 PO 0812 Ceftriaxone Sodium 1,000 MG DAILY 07/17 1000 AC 07/19 IV 0811 Fenofibrate 48 MG DAILY 07/17 1000 AC 07/19 PO 0812 Folic Acid 1 MG DAILY 07/17 1000 AC 07/19 PO 0811 Heparin Sodium 5,000 UNIT Q8 07/16 2200 AC 07/19 (Porcine) SC 0542 Hydromorphone HCl 0.5 MG Q4P PRN 07/16 1800 AC IV Lorazepam 0.5 MG TID PRN 07/17 1015 AC 07/19 PO 07/24 1014 0811 Metoprolol Tartrate 25 MG BID 07/16 2200 AC 07/19 PO 0814 Patient Medication 1 ED .STK-MED ONE 07/18 1357 [place] Teaching ED 07/18 1358 Polyethylene Glycol 17 GM DAILY 07/17 1630 AC 07/19 PO 0812 Prednisone 40 MG DAILY 07/16 1900 AC 07/19 PO 0812 Tiotropium [place] 1 PUF DAILY 07/17 1000 AC 07/19 INH 0812 Vancomycin HCl 1,000 MG DAILY 07/17 1132 DC 07/17 Dextrose/Water 250 ML IV 1348 Vital Signs & I&O Last 24 Hrs of Vitals and I&O: Vital Signs Date Time Temp Pulse Resp B/P Pulse O2 O2 Flow FiO2 Ox Delivery Rate 07/19 0922 92 Room Air Room Air 07/19 0814 80 132/78 07/19 0630 97.8 80 20 132/78 91 Room Air 07/18 2214 97.6 85 24 140/86 95 Room Air 07/18 2121 67 128/80 01/19 1900 95 Room Air 07/18 1845 94 Nasal 1.0L Cannula 07/18 1830 95 Nasal 1.0L Cannula 07/18 1810 82 Room Air 07/18 1800 95 Nasal 1.0L Cannula 07/18 1600 94 Nasal 1.0L Cannula 07/18 1422 98.0 80 20 122/74 92 Nasal 1.0L Cannula 07/18 0940 82 136/78 Intake & Output 07/19 1600 07/19 0800 07/19 0000 Intake Total 760 Output Total Balance 760 Intake, IV 10 Intake, Oral 750 Number 1 Bowel Movements Impression/Plan Impression/Plan Impression/Plan: Exam: General: Patient awake without any distress CVS: S1 plus S2 without any murmur or gallops Chest: Few scattered crepitation without any wheeze. Overall decreased air entry at the bases. There is no respiratory distress. 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 Previous chest x-ray had showed similar findings. Cultures unremarkable so far influenza negative IMPRESSION This is a gentleman with end-stage COPD with advanced emphysema, previous granulomatous lung disease, previous parenchymal scarring, coronary artery disease with previous CABG, previous abd aortic aneurysm status post repair, previous inferior wall VT, dyslipidemia, peripheral vascular disease, osteoarthritis, diverticular disease in the past with hemicolectomy, BPH, degenerative disc disease with previous low back surgery and cervical disease surgery, previous nephrolithiasis, chronic kidney disease stage 3, recent worsening memory loss with weight loss now has * Community-acquired pna who did not respond to po cefuroxime, now better * Resolved bademia sepsis * Peripheral vascular disease, ischemic heart disease with no clinical evidence suggestive of activity ischemia. His troponin is within normal limits. 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 * Significant COPD with no evidence of severe active wheezing however patient does seem to have severe pneumonia hence would require steroid therapy RECOMMENDATION * DC iv abx, start po [place] for a total duration of abx for 14 days * Prednisone 40 mg daily for two more days and dc * Wean oxygen if bo * If dcd soon pt to see me as out pt * Nebulizer therapy only as needed use ipratropium avoid albuterol
== END 2016-07-19 12:50 | DRG 871 ==
LOC: ENRESERVDT → CANRESERV → ENRESERVTM → ERH 14:16 → 1NO 16:16 → 2NA 16:16 → ERHI 16:16 → EDBEDREQ 18:35 → 1NO 20:26 → 2NA 07-17 20:39
PROVIDERS: Emergency Medicine; Internal Medicine Hematology & Oncology; ADMIT Internal Medicine
DX: A41.9 Sepsis, unspecified organism (principal); J18.9 Pneumonia, unspecified organism; E87.2 Acidosis; J44.1 Chronic obstructive pulmonary disease with (acute) exacerbation; I25.810 Atherosclerosis of coronary artery bypass graft(s) without angina pectoris; I73.9 Peripheral vascular disease, unspecified; E78.5 Hyperlipidemia, unspecified; M19.90 Unspecified osteoarthritis, unspecified site; N40.0 Benign prostatic hyperplasia without lower urinary tract symptoms; N18.3 Chronic kidney disease, stage 3 (moderate)
CPT/HCPCS: 1NSP; 2NAP; 36415; 81003; 82436; 87040; 87070; 87071; 87086; 87449; 87450; 87804; 87804-59; 93005; 93010; J0456; J0696; J1644; J3370; J3490; J7040; J7060